=== PATIENT | female | born 1985 | race Caucasian/White ===

== ENCOUNTER 2022-06-23 13:30 | Inpatient (IN) | payer MEDICAID, OTHER, SELFPAY ==
--- NOTE | ~2022-06-23 | US_ITS ---
EXAMINATION: US ABDOMEN LIMITED CLINICAL INFORMATION: Right upper quadrant pain and tenderness. COMPARISON: Ultrasound abdomen 08/11/2015 TECHNIQUE: Real-time imaging of the right upper quadrant abdominal viscera. FINDINGS: PANCREAS: The pancreas appears unremarkable, without masses or ductal dilatation, with the exception of the tail which is obscured by bowel gas. LIVER: The liver is normal in size. The liver contour is normal. There is diffuse increased liver parenchymal echogenicity, consistent with hepatic steatosis. Multiple benign simple liver cysts are again seen the largest measuring 2.1 cm. No worrisome solid hepatic masses. There is no intrahepatic biliary duct dilatation seen. GALLBLADDER: The gallbladder is distended and appears thickened wall measuring 5 mm. 2 gallstones are seen near the neck of the gallbladder measuring about 1.3 cm. A 7 x 6 x 8 mm polyp is present, previously 3 mm. The wall thickening and stones are new when compared to the 2016 study. COMMON BILE DUCT: Normal in caliber measuring 0.7 cm in diameter. The CBD measured 3 mm in 2016 RIGHT KIDNEY: Normal. No hydronephrosis. No renal calculi or focal parenchymal lesions. The kidney measures 11.7 cm in maximum dimension. FREE FLUID: None. US/US abdomen limited IMPRESSION: 1. Cholelithiasis with thickened gallbladder wall and mild dilatation of CBD, new since 2016. Findings concerning for cholecystitis 2. Gallbladder polyp has increased in size from 3 to 8 mm 3. Hepatic steatosis. 4. Benign simple hepatic cysts need no further imaging or follow-up.
--- NOTE | 2022-06-23 13:43 | ED.ABDPAIN ---
HPI - Abdominal Pain General Chief Complaint: Abdominal Pain <Gabriela Neff CNP - Last Filed: 06/23/22 18:16> Stated Complaint: abd pain <Gabriela Neff CNP - Last Filed: 06/23/22 18:16> Time Seen by Provider: 06/23/22 19:33 <Gabriela Neff CNP - Last Filed: 06/23/22 18:16> Source: patient <Sandie Crooks MD - Last Filed: 06/23/22 21:15> Mode of arrival: ambulatory <Sandie Crooks MD - Last Filed: 06/23/22 21:15> History of Present Illness HPI narrative: 36-year-old female without significant past medical history presents with a 3-4 month course of having developed right upper quadrant/epigastric pain after fat containing meals and has progressively become more frequent with the last episode yesterday at approximately 22:00 after she had eaten a fatty meal. She reports subjective fevers overnight but denies any nausea, vomiting and otherwise denies any GI or symptoms other than described above. She presented to the emergency room because the pain was persistent and would not go away. <Sandie Crooks MD - Last Filed: 06/23/22 21:15> Related Data Allergies/Adverse Reactions: Allergies Allergy/AdvReac Type Severity Reaction Status Date / Time No Known Allergies Allergy Unverified 01/24/20 17:26 <Gabriela Neff CNP - Last Filed: 06/23/22 18:16> Review of Systems Review of Systems Pertinent positives and negatives as stated in HPI <Sandie Crooks MD - Last Filed: 06/23/22 21:15> PMFSH Past Medical History Source: nursing notes reviewed <Sandie Crooks MD - Last Filed: 06/23/22 21:15> Social History Social History: Social History Advance Directives: No Advance Directives Information Provided: No <Gabriela Neff CNP - Last Filed: 06/23/22 18:16> Physical Exam ED Vital Signs: Vital Signs - 24 hr 06/23/22 13:44 06/23/22 17:17 06/23/22 19:36 Temperature 98.1 F 98 F 98.2 F Pulse Rate 89 94 92 Respiratory Rate 18 18 16 Blood Pressure 150/86 H 143/93 H 158/67 H Pulse Oximetry 98 98 97 Oxygen Delivery Method Room Air Room Air Room Air 06/23/22 20:00 Temperature 98.1 F Pulse Rate 87 Respiratory Rate 16 Blood Pressure 131/65 Pulse Oximetry 98 Oxygen Delivery Method Room Air BMI result Body Mass Index 34.7 <Gabriela Neff CNP - Last Filed: 06/23/22 18:16> Vital Signs - 24 hr 06/23/22 13:44 06/23/22 17:17 06/23/22 19:36 Temperature 98.1 F 98 F 98.2 F Pulse Rate 89 94 92 Respiratory Rate 18 18 16 Blood Pressure 150/86 H 143/93 H 158/67 H Pulse Oximetry 98 98 97 Oxygen Delivery Method Room Air Room Air Room Air 06/23/22 20:00 Temperature 98.1 F Pulse Rate 87 Respiratory Rate 16 Blood Pressure 131/65 Pulse Oximetry 98 Oxygen Delivery Method Room Air BMI result Body Mass Index 34.7 VITAL SIGNS: Reviewed. GENERAL: Well developed, well nourished, in no acute distress. HEAD: Normocephalic/atraumatic EYES: PERRLA, EOMI LUNGS: Normal breath sounds. No adventitious sounds or accessory muscle use. SpO2<98> CARDIOVASCULAR: Regular rate and rhythm without noted murmurs ABDOMEN: Soft, Donald's positive, TTP RUQ, non-distended with bowel sounds. MUSCULOSKELETAL: No tenderness, deformities, or effusions noted on gross inspection. EXTREMITIES: No cyanosis, clubbing or edema. SKIN: Inspection of the skin reveals no rashes NEUROLOGIC: Alert and oriented x 4. Strength and sensation to light touch were grossly intact x 4. <Sandie Crooks MD - Last Filed: 06/23/22 21:15> Course Course Course Narrative: This is an RME: Additional HPI, ROS, PE not included below will be deferred to primary provider. Patient is a 36-year-old female who presents emergency department for evaluation of abdominal pain. She reports that she is having epigastric pain, burning, that has been intermittent in nature, and she reports a history of gastritis. Trialed simethicone and omeprazole without any improvement. Denies associated nausea/vomiting. Yesterday had tactile fever and diarrhea, denies today. Denies symptoms, denies . PE: RUQ/ epigastric tenderness upon palpation Plan: Labs, right upper quadrant ultrasound, GI cocktail, viral testing, urinalysis, hCG 17:30 - ultrasound findings concerning for acute cholecystitis with cholelithiasis, and CBD dilation. blood cultures, lactic acid, zosyn IV ordered, spoke with charge account identification clerk regarding patient pending bed availability, will be brought back to main ED once bed is available <Gabriela Neff CNP - Last Filed: 06/23/22 18:16> Medical Decision Making Medical Decision Making MDM Narrative: 36-year-old female with history and clinical presentation consistent with cholecystitis and on review of all investigations my interpretation is as patient has acute cholecystitis. <Sandie Crooks MD - Last Filed: 06/23/22 21:15> Differential Diagnosis Differential Diagnoses: The differential diagnosis associated with the presentation includes <Sandie Crooks MD - Last Filed: 06/23/22 21:15> Please see discussion above <Sandie Crooks MD - Last Filed: 06/23/22 21:15> Consult Healthcare Provider Management of the patient was discussed with: Slack Cooper <Sandie Crooks MD - Last Filed: 06/23/22 21:15> 2030: I consulted with General surgery, Dr. Galeano, who accepts admission. <Sandie Crooks MD - Last Filed: 06/23/22 21:15> Lab Data Please see the discussion above <Sandie Crooks MD - Last Filed: 06/23/22 21:15> Result Diagrams: 06/23/22 14:18 06/23/22 14:18 <Gabriela Neff CNP - Last Filed: 06/23/22 18:16> Labs: Lab Results 06/23/22 06/23/22 06/23/22 Range/Units 00:51 14:18 14:18 WBC 7.0 (4.8-10.8) X10*3/uL RBC 4.27 (4.20-5.50) X10*6/uL Hgb 12.8 (12.0-16.0) g/dl Hct 38.5 (37.0-47.0) % MCV 90.2 (80.0-98.0) fL MCH 30.0 (27.0-33.0) pg MCHC 33.2 (31.0-35.0) g/dl RDW 12.9 (11.0-16.0) % Plt Count 335 (160-400) X10*3/uL MPV 9.2 L (9.4-12.3) fL Immature Gran % (Auto) 0.3 (0.0-0.4) % Neut % (Auto) 72.0 (45-73) % Lymph % (Auto) 17.4 L (20-40) % Ashley % (Auto) 7.8 (2-11) % Eos % (Auto) 2.4 (0-4) % Baso % (Auto) 0.1 (0-2) % Lymph # (Auto) 1.2 (1.2-4.9) X10*3/uL Ashley # (Auto) 0.6 (0.1-1.2) X10*3/uL Eos # (Auto) 0.2 (0.0-0.4) X10*3/uL Baso # (Auto) 0.0 (0.0-0.2) X10*3/uL Abs Immat Gran (auto) 0.02 (0.00-0.03) X10*3/uL Absolute Neuts (auto) 5.0 (2.0-8.3) x10*3/uL Absolute Nucleated RBC 0.000 (0.0-0.012) X10*3/uL Nucleated RBC % (auto) 0.0 (0.0-0.2) /100WBC Sodium 141 (135-145) mmol/L Potassium 4.0 (3.3-5.1) mmol/L Chloride 109 H (96-108) mmol/L Carbon Dioxide 25 (22-29) mmol/L Anion Gap 11 L (12-20) BUN 6 L (9-16) mg/dL Creatinine 0.61 (0.5-1.4) mg/dL Estim Creat Clear Calc 123.6 Estimated GFR > 60 Random Glucose 107 (60-115) mg/dL Lactic Acid 0.7 (0.5-2.0) mmol/L Calcium 8.8 (8.4-10.2) mg/dL Total Bilirubin 0.9 (0.0-1.0) mg/dL AST 18 (5-31) U/L ALT 18 (0-31) U/L Alkaline Phosphatase 80 (39-117) U/L Total Protein 7.0 (6.5-8.0) g/dL Albumin 4.3 (3.5-5.0) g/dL Lipase 19 (8-78) U/L Urine Color Urine Appearance Urine pH (5.0-9.0) Ur Specific [place] (1.005-1.025) Urine Protein (Neg-Trace) mg/dL Urine Glucose (UA) (Negative) mg/dL Urine Ketones (Negative) mg/dL Urine Blood (Negative) Urine Nitrite (Negative) Ur Leukocyte Esterase (Negative) Urine Test (NEGATIVE) COVID-19 (JESSICA) (Negative) COVID-19 Clin Com Influenza Type A (FABIAN) (Negative) Influenza Type B (FABIAN) (Negative) Influenza A & B Note 06/23/22 06/23/22 06/23/22 Range/Units 14:18 14:18 18:05 WBC (4.8-10.8) X10*3/uL RBC (4.20-5.50) X10*6/uL Hgb (12.0-16.0) g/dl Hct (37.0-47.0) % MCV (80.0-98.0) fL MCH (27.0-33.0) pg MCHC (31.0-35.0) g/dl RDW (11.0-16.0) % Plt Count (160-400) X10*3/uL MPV (9.4-12.3) fL Immature Gran % (Auto) (0.0-0.4) % Neut % (Auto) (45-73) % Lymph % (Auto) (20-40) % Ashley % (Auto) (2-11) % Eos % (Auto) (0-4) % Baso % (Auto) (0-2) % Lymph # (Auto) (1.2-4.9) X10*3/uL Ashley # (Auto) (0.1-1.2) X10*3/uL Eos # (Auto) (0.0-0.4) X10*3/uL Baso # (Auto) (0.0-0.2) X10*3/uL Abs Immat Gran (auto) (0.00-0.03) X10*3/uL Absolute Neuts (auto) (2.0-8.3) x10*3/uL Absolute Nucleated RBC (0.0-0.012) X10*3/uL Nucleated RBC % (auto) (0.0-0.2) /100WBC Sodium (135-145) mmol/L Potassium (3.3-5.1) mmol/L Chloride (96-108) mmol/L Carbon Dioxide (22-29) mmol/L Anion Gap (12-20) BUN (9-16) mg/dL Creatinine (0.5-1.4) mg/dL Estim Creat Clear Calc Estimated GFR Random Glucose (60-115) mg/dL Lactic Acid (0.5-2.0) mmol/L Calcium (8.4-10.2) mg/dL Total Bilirubin (0.0-1.0) mg/dL AST (5-31) U/L ALT (0-31) U/L Alkaline Phosphatase (39-117) U/L Total Protein (6.5-8.0) g/dL Albumin (3.5-5.0) g/dL Lipase (8-78) U/L Urine Color Yellow Urine Appearance Clear Urine pH 6.5 (5.0-9.0) Ur Specific [place] 1.010 (1.005-1.025) Urine Protein Negative (Neg-Trace) mg/dL Urine Glucose (UA) Negative (Negative) mg/dL Urine Ketones 15 (Negative) mg/dL Urine Blood Negative (Negative) Urine Nitrite Negative (Negative) Ur Leukocyte Esterase Negative (Negative) Urine Test (NEGATIVE) COVID-19 (JESSICA) Negative (Negative) COVID-19 Clin Com See Note Influenza Type A (FABIAN) Negative (Negative) Influenza Type B (FABIAN) Negative (Negative) Influenza A & B Note See Note 06/23/22 Range/Units 18:05 WBC (4.8-10.8) X10*3/uL RBC (4.20-5.50) X10*6/uL Hgb (12.0-16.0) g/dl Hct (37.0-47.0) % MCV (80.0-98.0) fL MCH (27.0-33.0) pg MCHC (31.0-35.0) g/dl RDW (11.0-16.0) % Plt Count (160-400) X10*3/uL MPV (9.4-12.3) fL Immature Gran % (Auto) (0.0-0.4) % Neut % (Auto) (45-73) % Lymph % (Auto) (20-40) % Ashley % (Auto) (2-11) % Eos % (Auto) (0-4) % Baso % (Auto) (0-2) % Lymph # (Auto) (1.2-4.9) X10*3/uL Ashley # (Auto) (0.1-1.2) X10*3/uL Eos # (Auto) (0.0-0.4) X10*3/uL Baso # (Auto) (0.0-0.2) X10*3/uL Abs Immat Gran (auto) (0.00-0.03) X10*3/uL Absolute Neuts (auto) (2.0-8.3) x10*3/uL Absolute Nucleated RBC (0.0-0.012) X10*3/uL Nucleated RBC % (auto) (0.0-0.2) /100WBC Sodium (135-145) mmol/L Potassium (3.3-5.1) mmol/L Chloride (96-108) mmol/L Carbon Dioxide (22-29) mmol/L Anion Gap (12-20) BUN (9-16) mg/dL Creatinine (0.5-1.4) mg/dL Estim Creat Clear Calc Estimated GFR Random Glucose (60-115) mg/dL Lactic Acid (0.5-2.0) mmol/L Calcium (8.4-10.2) mg/dL Total Bilirubin (0.0-1.0) mg/dL AST (5-31) U/L ALT (0-31) U/L Alkaline Phosphatase (39-117) U/L Total Protein (6.5-8.0) g/dL Albumin (3.5-5.0) g/dL Lipase (8-78) U/L Urine Color Urine Appearance Urine pH (5.0-9.0) Ur Specific [place] (1.005-1.025) Urine Protein (Neg-Trace) mg/dL Urine Glucose (UA) (Negative) mg/dL Urine Ketones (Negative) mg/dL Urine Blood (Negative) Urine Nitrite (Negative) Ur Leukocyte Esterase (Negative) Urine Test NEGATIVE (NEGATIVE) COVID-19 (JESSICA) (Negative) COVID-19 Clin Com Influenza Type A (FABIAN) (Negative) Influenza Type B (FABIAN) (Negative) Influenza A & B Note <Gabriela Debbie Neff, PSYCHIATRY ADULT PHYSICIAN - Last Filed: 06/23/22 18:16> Lab Results 06/23/22 06/23/22 06/23/22 Range/Units 00:51 14:18 14:18 WBC 7.0 (4.8-10.8) X10*3/uL RBC 4.27 (4.20-5.50) X10*6/uL Hgb 12.8 (12.0-16.0) g/dl Hct 38.5 (37.0-47.0) % MCV 90.2 (80.0-98.0) fL MCH 30.0 (27.0-33.0) pg MCHC 33.2 (31.0-35.0) g/dl RDW 12.9 (11.0-16.0) % Plt Count 335 (160-400) X10*3/uL MPV 9.2 L (9.4-12.3) fL Immature Gran % (Auto) 0.3 (0.0-0.4) % Neut % (Auto) 72.0 (45-73) % Lymph % (Auto) 17.4 L (20-40) % Ashley % (Auto) 7.8 (2-11) % Eos % (Auto) 2.4 (0-4) % Baso % (Auto) 0.1 (0-2) % Lymph # (Auto) 1.2 (1.2-4.9) X10*3/uL Ashley # (Auto) 0.6 (0.1-1.2) X10*3/uL Eos # (Auto) 0.2 (0.0-0.4) X10*3/uL Baso # (Auto) 0.0 (0.0-0.2) X10*3/uL Abs Immat Gran (auto) 0.02 (0.00-0.03) X10*3/uL Absolute Neuts (auto) 5.0 (2.0-8.3) x10*3/uL Absolute Nucleated RBC 0.000 (0.0-0.012) X10*3/uL Nucleated RBC % (auto) 0.0 (0.0-0.2) /100WBC Sodium 141 (135-145) mmol/L Potassium 4.0 (3.3-5.1) mmol/L Chloride 109 H (96-108) mmol/L Carbon Dioxide 25 (22-29) mmol/L Anion Gap 11 L (12-20) BUN 6 L (9-16) mg/dL Creatinine 0.61 (0.5-1.4) mg/dL Estim Creat Clear Calc 123.6 Estimated GFR > 60 Random Glucose 107 (60-115) mg/dL Lactic Acid 0.7 (0.5-2.0) mmol/L Calcium 8.8 (8.4-10.2) mg/dL Total Bilirubin 0.9 (0.0-1.0) mg/dL AST 18 (5-31) U/L ALT 18 (0-31) U/L Alkaline Phosphatase 80 (39-117) U/L Total Protein 7.0 (6.5-8.0) g/dL Albumin 4.3 (3.5-5.0) g/dL Lipase 19 (8-78) U/L Urine Color Urine Appearance Urine pH (5.0-9.0) Ur Specific [place] (1.005-1.025) Urine Protein (Neg-Trace) mg/dL Urine Glucose (UA) (Negative) mg/dL Urine Ketones (Negative) mg/dL Urine Blood (Negative) Urine Nitrite (Negative) Ur Leukocyte Esterase (Negative) Urine Test (NEGATIVE) COVID-19 (JESSICA) (Negative) COVID-19 Clin Com Influenza Type A (FABIAN) (Negative) Influenza Type B (FABIAN) (Negative) Influenza A & B Note 06/23/22 06/23/22 06/23/22 Range/Units 14:18 14:18 18:05 WBC (4.8-10.8) X10*3/uL RBC (4.20-5.50) X10*6/uL Hgb (12.0-16.0) g/dl Hct (37.0-47.0) % MCV (80.0-98.0) fL MCH (27.0-33.0) pg MCHC (31.0-35.0) g/dl RDW (11.0-16.0) % Plt Count (160-400) X10*3/uL MPV (9.4-12.3) fL Immature Gran % (Auto) (0.0-0.4) % Neut % (Auto) (45-73) % Lymph % (Auto) (20-40) % Ashley % (Auto) (2-11) % Eos % (Auto) (0-4) % Baso % (Auto) (0-2) % Lymph # (Auto) (1.2-4.9) X10*3/uL Ashley # (Auto) (0.1-1.2) X10*3/uL Eos # (Auto) (0.0-0.4) X10*3/uL Baso # (Auto) (0.0-0.2) X10*3/uL Abs Immat Gran (auto) (0.00-0.03) X10*3/uL Absolute Neuts (auto) (2.0-8.3) x10*3/uL Absolute Nucleated RBC (0.0-0.012) X10*3/uL Nucleated RBC % (auto) (0.0-0.2) /100WBC Sodium (135-145) mmol/L Potassium (3.3-5.1) mmol/L Chloride (96-108) mmol/L Carbon Dioxide (22-29) mmol/L Anion Gap (12-20) BUN (9-16) mg/dL Creatinine (0.5-1.4) mg/dL Estim Creat Clear Calc Estimated GFR Random Glucose (60-115) mg/dL Lactic Acid (0.5-2.0) mmol/L Calcium (8.4-10.2) mg/dL Total Bilirubin (0.0-1.0) mg/dL AST (5-31) U/L ALT (0-31) U/L Alkaline Phosphatase (39-117) U/L Total Protein (6.5-8.0) g/dL Albumin (3.5-5.0) g/dL Lipase (8-78) U/L Urine Color Yellow Urine Appearance Clear Urine pH 6.5 (5.0-9.0) Ur Specific [place] 1.010 (1.005-1.025) Urine Protein Negative (Neg-Trace) mg/dL Urine Glucose (UA) Negative (Negative) mg/dL Urine Ketones 15 (Negative) mg/dL Urine Blood Negative (Negative) Urine Nitrite Negative (Negative) Ur Leukocyte Esterase Negative (Negative) Urine Test (NEGATIVE) COVID-19 (JESSICA) Negative (Negative) COVID-19 Clin Com See Note Influenza Type A (FABIAN) Negative (Negative) Influenza Type B (FABIAN) Negative (Negative) Influenza A & B Note See Note 06/23/22 Range/Units 18:05 WBC (4.8-10.8) X10*3/uL RBC (4.20-5.50) X10*6/uL Hgb (12.0-16.0) g/dl Hct (37.0-47.0) % MCV (80.0-98.0) fL MCH (27.0-33.0) pg MCHC (31.0-35.0) g/dl RDW (11.0-16.0) % Plt Count (160-400) X10*3/uL MPV (9.4-12.3) fL Immature Gran % (Auto) (0.0-0.4) % Neut % (Auto) (45-73) % Lymph % (Auto) (20-40) % Ashley % (Auto) (2-11) % Eos % (Auto) (0-4) % Baso % (Auto) (0-2) % Lymph # (Auto) (1.2-4.9) X10*3/uL Ashley # (Auto) (0.1-1.2) X10*3/uL Eos # (Auto) (0.0-0.4) X10*3/uL Baso # (Auto) (0.0-0.2) X10*3/uL Abs Immat Gran (auto) (0.00-0.03) X10*3/uL Absolute Neuts (auto) (2.0-8.3) x10*3/uL Absolute Nucleated RBC (0.0-0.012) X10*3/uL Nucleated RBC % (auto) (0.0-0.2) /100WBC Sodium (135-145) mmol/L Potassium (3.3-5.1) mmol/L Chloride (96-108) mmol/L Carbon Dioxide (22-29) mmol/L Anion Gap (12-20) BUN (9-16) mg/dL Creatinine (0.5-1.4) mg/dL Estim Creat Clear Calc Estimated GFR Random Glucose (60-115) mg/dL Lactic Acid (0.5-2.0) mmol/L Calcium (8.4-10.2) mg/dL Total Bilirubin (0.0-1.0) mg/dL AST (5-31) U/L ALT (0-31) U/L Alkaline Phosphatase (39-117) U/L Total Protein (6.5-8.0) g/dL Albumin (3.5-5.0) g/dL Lipase (8-78) U/L Urine Color Urine Appearance Urine pH (5.0-9.0) Ur Specific [place] (1.005-1.025) Urine Protein (Neg-Trace) mg/dL Urine Glucose (UA) (Negative) mg/dL Urine Ketones (Negative) mg/dL Urine Blood (Negative) Urine Nitrite (Negative) Ur Leukocyte Esterase (Negative) Urine Test NEGATIVE (NEGATIVE) COVID-19 (JESSICA) (Negative) COVID-19 Clin Com Influenza Type A (FABIAN) (Negative) Influenza Type B (FABIAN) (Negative) Influenza A & B Note <Sandie Crooks MD - Last Filed: 06/23/22 21:15> Radiology Impression Radiologist Impression: My interpretation is in agreement with radiology's impression of the imaging study. <Sandie Crooks MD - Last Filed: 06/23/22 21:15> Medications Administered Discontinued Medications Generic Name Dose Route Start Last Admin Trade Name Freq PRN Reason Stop Dose Admin Al Hydroxide/Mg Hydroxide 30 ml 06/23/22 13:46 06/23/22 13:52 Magnesium Hydrox/Alum Hydrox 30 Ml Oral.Susp PO 06/23/22 13:47 30 ml ONCE ONE Administration Famotidine 20 mg 06/23/22 13:46 06/23/22 13:52 Famotidine 20 Mg Tablet PO 06/23/22 13:47 20 mg ONCE ONE Administration Piperacillin Sod/Tazobactam 50 mls @ 100 mls/hr 06/23/22 17:22 06/23/22 20:40 Sod 3.375 gm/ Sodium Chloride IV 06/23/22 17:51 Infused ONCE ONE Infusion Lidocaine HCl 15 ml 06/23/22 13:46 06/23/22 13:52 Lidocaine Hcl Viscous 2 % 15 Ml Solution MUCOUS MEM 06/23/22 13:47 15 ml ONCE ONE Administration <Gabriela Neff CNP - Last Filed: 06/23/22 18:16> Medications Administered Discontinued Medications Generic Name Dose Route Start Last Admin Trade Name Francois PRN Reason Stop Dose Admin Al Hydroxide/Mg Hydroxide 30 ml 06/23/22 13:46 06/23/22 13:52 Magnesium Hydrox/Alum Hydrox 30 Ml Oral.Susp PO 06/23/22 13:47 30 ml ONCE ONE Administration Famotidine 20 mg 06/23/22 13:46 06/23/22 13:52 Famotidine 20 Mg Tablet PO 06/23/22 13:47 20 mg ONCE ONE Administration Piperacillin Sod/Tazobactam 50 mls @ 100 mls/hr 06/23/22 17:22 06/23/22 20:40 Sod 3.375 gm/ Sodium Chloride IV 06/23/22 17:51 Infused ONCE ONE Infusion Lidocaine HCl 15 ml 06/23/22 13:46 06/23/22 13:52 Lidocaine Hcl Viscous 2 % 15 Ml Solution MUCOUS MEM 06/23/22 13:47 15 ml ONCE ONE Administration <Sandie Crooks MD - Last Filed: 06/23/22 21:15> Critical Care Time Critical Care Time Critical Care Time: Yes <Sandie Crooks MD - Last Filed: 06/23/22 21:15> Total Critical Care Time: 30 <Sandie Crooks MD - Last Filed: 06/23/22 21:15> Attestation: I personally attest to this time spent taking care of the patient. <Sandie Crooks MD - Last Filed: 06/23/22 21:15> Discharge Plan Discharge Patient Disposition: Admitted As Inpatient <Gabriela Neff CNP - Last Filed: 06/23/22 18:16>
[2022-06-23 13:44] VITALS: BP 150/86; PULSE 89; RESP 18; TEMP 36.7; O2SAT 98; BMI 34.7
[2022-06-23] MEDS: Lidocaine HCl Viscous 2 % 15 ML SOLUTION MUCOUS MEM (13:52)
[2022-06-23] MEDS: Magnesium Hydrox/Alum Hydrox 30 ML ORAL.SUSP PO (13:52)
[2022-06-23] MEDS: Famotidine 20 MG TABLET PO (13:52)
--- NOTE | 2022-06-23 13:54 | PC.NURSE ---
pt medicated per provider order.
[2022-06-23 14:25] LABS: MANUAL DIFF FLAG NO
[2022-06-23 14:32] LABS: Basophils Percent Auto 0.1 % (0-2); Eosinophils Absolute Auto 0.2 X10*3/uL (0.0-0.4); Eosinophils Percent Auto 2.4 % (0-4); Hematocrit 38.5 % (37.0-47.0); Hemoglobin 12.8 g/dl (12.0-16.0); Imm Gran Abs Auto 0.02 X10*3/uL (0.00-0.03); Imm Gran Pct Auto 0.3 % (0.0-0.4); Lymphocytes Absolute Auto 1.2 X10*3/uL (1.2-4.9); Lymphocytes Percent Auto 17.4 % (20-40); Mean Corpuscular HGB Conc 33.2 g/dl (31.0-35.0); Mean Corpuscular Volume 90.2 fL (80.0-98.0); Mean Platelet Volume 9.2 fL (9.4-12.3); Monocytes Absolute Auto 0.6 X10*3/uL (0.1-1.2); Monocytes Percent Auto 7.8 % (2-11); Platelet Count 335 X10*3/uL (160-400); Red Blood Count 4.27 X10*6/uL (4.20-5.50); Red Cell Distribution Width 12.9 % (11.0-16.0)
[2022-06-23 14:42] LABS: Alanine Aminotransferase 18 U/L (0-31); Albumin Level 4.3 g/dL (3.5-5.0); Alkaline Phosphatase 80 U/L (39-117); Anion Gap 11 (12-20); Aspartate Amino Transferase 18 U/L (5-31); Bilirubin Total 0.9 mg/dL (0.0-1.0); Blood Urea Nitrogen 6 mg/dL (9-16); Calcium 8.8 mg/dL (8.4-10.2); Carbon Dioxide 25 mmol/L (22-29); Chloride 109 mmol/L (96-108); Creatinine Clr Calc Pharmacy 123.6; Estimated Glomerular Filt Rate > 60; Glucose Random 107 mg/dL (60-115); Lipase 19 U/L (8-78); Sodium 141 mmol/L (135-145)
[2022-06-23 14:48] LABS: COVID-19 Test Negative (Negative); IDNOW Serial# 16C4AD1C; IDNOW Serial# BCCEAD1C; Influenza A Negative (Negative); Influenza B2 Negative (Negative)
[2022-06-23 17:17] VITALS: BP 143/93; PULSE 94; RESP 18; TEMP 36.6; O2SAT 98
[2022-06-23 18:17] LABS: Appearance Urine Clear; Color Urine Yellow; Glucose Urine UA Negative (Negative); Leukocyte Esterase Urine Negative (Negative); Nitrite Urine Negative (Negative); PH 6.5 (5.0-9.0); Urine Blood Negative (Negative); Urine Ketones 15 mg/dL (Negative); Urine Protein Negative (Neg-Trace)
[2022-06-23 18:21] LABS: UPreg QC Valid YES; Urine Pregnancy NEGATIVE (NEGATIVE)
[2022-06-23 18:27] LABS: Lactic Acid 0.7 mmol/L (0.5-2.0)
[2022-06-23 19:36] VITALS: BP 158/67; PULSE 92; RESP 16; TEMP 36.8; O2SAT 97
[2022-06-23] MEDS: Piperacillin Sodium/Tazobactam 3.375 GM in 0.9 % Sodium Chloride 50 ML IV (19:51)
--- NOTE | 2022-06-23 19:53 | PC.NURSE ---
Addendum entered by Ronna Reilly 06/23/22 20:01: correction this rn assumed care of pt @ 1930 Original Note: this rn assumed care of pt @ 1717. iv line placed 20 L AC. flushed well. pt medicated according to jul. pt resting on stretcher [id number] into hospital gown at this time
[2022-06-23 20:00] VITALS: BP 131/65; PULSE 87; RESP 16; TEMP 36.7; O2SAT 98
--- NOTE | 2022-06-23 20:00 | MHC.EDTECH ---
2000 rounding and vitals sign taken ,pt resting in bed .
[2022-06-23 21:00] VITALS: BP 111/54; PULSE 85; RESP 16; TEMP 36.7; O2SAT 98
--- NOTE | 2022-06-23 21:31 | PHA.MEDREC ---
Pharmacy Consult ? Medication Reconciliation Pharmacy has completed the medication reconciliation.
[2022-06-23] MEDS: Sodium Chloride 0.45 % 1,000 ML 100 ML IVCONT (21:46)
--- NOTE | 2022-06-23 21:50 | PC.NURSE ---
pt medicated according to mar. pt's at bedside at this time. no new needs at this time
--- NOTE | 2022-06-23 22:57 | PM.HPGS ---
History of Present Illness History of Present Illness Date of Service: 06/23/22 Chief complaint: abd pain Narrative: Senthil Lanza is a 36 year old female who has been having right upper quarant pain which got worse and she came into the ER today. She says she has been having worsening symptoms over the last few months with nausea no fever. Her mother had GB issues and had it out. She denies any unusual diet, sick contacts. Review of Systems Review of Systems: Yes all other systems are reviewed and are negative Constitutional: Constitutional: Reports as per HPI, Denies body ache(s) and Denies chills Cardiovascular: Cardiovascular: Reports no additional cardiovascular complaints Respiratory: Respiratory: Reports no additional respiratory complaints Gastrointestinal: Gastrointestinal: Reports abdominal pain, Denies change in bowel habits, Denies constipation, Denies diarrhea, Reports vomiting and Denies hematemesis Genitourinary: Genitourinary: Reports no additional female genitourinary complaints Musculoskeletal: Musculoskeletal: Reports no additional musculoskeletal complaints PMFSH Social History Social History Smoked in Last 30 Days: No Use of substances other than those prescribed or required for medical reasons: No Advance Directives: No Advance Directives Information Provided: No Meds Allergies Allergy/AdvReac Type Severity Reaction Status Date / Time No Known Allergies Allergy Unverified 01/24/20 17:26 Active Medications: Current Medications Famotidine (Famotidine 20 Mg Tablet) 20 mg PO BID [facility] Sodium Chloride (Sodium Chloride 0.45 %) 1,000 mls @ 100 mls/hr IVCONT .Q10H [facility] Last Admin: 06/23/22 21:46 Dose: 100 mls/hr Ketorolac Tromethamine (Ketorolac Tromethamine 30 Mg/Ml Vial) 30 mg IVPUSH Q6H PRN PRN Reason: Pain, Mild (Pain Scale 1-3) Stop: 06/28/22 20:59 Ondansetron HCl (Ondansetron Hcl 4 Mg/2 Ml Vial) 4 mg IVPUSH Q8H PRN PRN Reason: Nausea and Vomiting Sodium Chloride (0.9 % Sodium Chloride Flush 3 Ml Syringe) 3 ml IVFLUSH QSHIFT [facility] Home Medications Medication Instructions Recorded Confirmed Last Taken Type omeprazole 20 mg capsule,delayed 20 mg PO DAILY 06/23/22 06/23/22 06/23/22 History release Physical Exam Vital Signs: Vital Signs: Last Vital Signs Temp 98.1 F 06/23/22 21:00 Pulse 85 06/23/22 21:00 Resp 16 06/23/22 21:00 BP 111/54 L 06/23/22 21:00 Pulse Ox 98 06/23/22 21:00 O2 Del Method 06/23/22 21:00 BMI result Body Mass Index 34.7 Const: General: cooperative, healthy appearing, comfortable and no acute distress Nutritional Appearance: overweight Orientation/consciousness: oriented to person, oriented to place and oriented to time HEENT: Head: Yes normal to inspection Resp: Effort & Inspection: normal respiratory effort Auscultation: clear to auscultation bilaterally Cardio: Rate: regular rate Rhythm: regular rhythm GI: Other: soft nondistended, diffusely mildly tender but worse in ruq with guarding. no peritoneal signs. : General: Yes no CVA tenderness Back/Spine/Pelvis: Back: no CVA tenderness Skin: Other: no jaundice Rashes: no rashes Neuro: General: oriented to person, oriented to place and oriented to time Extrem: General: Yes normal to inspection Psych: Appearance: grossly normal Mental Status: mental status grossly normal Results Results Labs: Short CBC 06/23/22 Range/Units 14:18 WBC 7.0 (4.8-10.8) X10*3/uL Hgb 12.8 (12.0-16.0) g/dl Hct 38.5 (37.0-47.0) % Plt Count 335 (160-400) X10*3/uL BMP 06/23/22 14:18 Sodium 141 Potassium 4.0 Chloride 109 H Carbon Dioxide 25 BUN 6 L Creatinine 0.61 Calcium 8.8 Liver Function 06/23/22 Range/Units 14:18 Total Bilirubin 0.9 (0.0-1.0) mg/dL AST 18 (5-31) U/L ALT 18 (0-31) U/L Alkaline Phosphatase 80 (39-117) U/L Albumin 4.3 (3.5-5.0) g/dL Urine 06/23/22 06/23/22 Range/Units 18:05 18:05 Urine Color Yellow Urine Appearance Clear Urine pH 6.5 (5.0-9.0) Ur Specific [place] 1.010 (1.005-1.025) Urine Protein Negative (Neg-Trace) mg/dL Urine Glucose (UA) Negative (Negative) mg/dL Urine Test NEGATIVE (NEGATIVE) Abdominal ultrasound report/results: report reviewed Additional studies: [address] [address] Ultrasound Report Signed Patient: Senthil Hyatt MR#: [id number] : 1985 Acct:[id number] Age/Sex: 36 / F ADM Date: 06/23/22 Loc: HO.ED Attending Dr: Ordering Physician: Gabriela Neff CNP Date of Service: 06/23/22 Procedure(s): US abdomen limited Accession Number(s): [id number] cc: Gabriela Neff CNP~ EXAMINATION: US ABDOMEN LIMITED CLINICAL INFORMATION: Right upper quadrant pain and tenderness. COMPARISON: Ultrasound abdomen 08/11/2015 TECHNIQUE: Real-time imaging of the right upper quadrant abdominal viscera. FINDINGS: PANCREAS: The pancreas appears unremarkable, without masses or ductal dilatation, with the exception of the tail which is obscured by bowel gas. LIVER: The liver is normal in size. The liver contour is normal. There is diffuse increased liver parenchymal echogenicity, consistent with hepatic steatosis.? Multiple benign simple liver cysts are again seen the largest measuring 2.1 cm. No worrisome solid hepatic masses. There is no intrahepatic biliary duct dilatation seen. GALLBLADDER: The gallbladder is distended and appears thickened wall measuring 5 mm. 2 gallstones are seen near the neck of the gallbladder measuring about 1.3 cm. A 7 x 6 x 8 mm polyp is present, previously 3 mm. The wall thickening and stones are new when compared to the 2016 study. COMMON BILE DUCT: Normal in caliber measuring 0.7 cm in diameter. The CBD measured 3 mm in 2016 RIGHT KIDNEY: Normal. No hydronephrosis. No renal calculi or focal parenchymal lesions. The kidney measures 11.7 cm in maximum dimension. FREE FLUID: None. US/US abdomen limited IMPRESSION: 1.? Cholelithiasis with thickened gallbladder wall and mild dilatation of CBD, new since 2016. Findings concerning for cholecystitis 2.? Gallbladder polyp has increased in size from 3 to 8 mm 3.? Hepatic steatosis. 4.? Benign simple hepatic cysts need no further imaging or follow-up. ? Dictated By: Kvng Sanchez MD Signed By: <Electronically signed by Kvng Sanchez MD in OV> 06/23/22 1522 DD/ 1348 TD/TT:? Drop Wire Builder: PRITI Assessment and Plan (1) Biliary colic: Status: Acute Plan 36 year old female with biliary colic maybe early cholecystitis vs chronic cholecytitis - she has been having worsening and more frequent right upper quadrant pain - gallstones present and thickening. lfts normal, tender in ruq. her cbd is .7 but was .3 few years ago. while normal this is a little large for 36 yo female. will admit, ivf, pain meds and check labs in am. npo after midnight, antibx if labs go up consider mrcp -? small CBD stone. pt will most likely need her gallbladder removed she understands and agree with the plan Time Spent With Patient Time: Total time managing care of this patient today ____ minutes. Quality Stroke Does the patient have a stroke diagnosis?: No VTE Prior VTE?: No VTE Risk Level:: Surgical - low VTE Device Contraindication: N/A - Device Ordered VTE Drug Contraindication: Treatment Not Indicated Procedures Date of Service Date of Service: 06/23/22
[2022-06-24] VITALS (19 sets, daily range): BP systolic 115–148; BP diastolic 49–79; PULSE 73–86; RESP 16–20; TEMP 36.3–37.3; O2SAT 96–100
[2022-06-24] MEDS: Piperacillin Sodium/Tazobactam 3.375 GM in 0.9 % Sodium Chloride 50 ML IV ×2 (02:33→09:50)
--- NOTE | 2022-06-24 02:42 | PC.NURSE ---
pt medicated according to mar. pt at bedside at this time
--- NOTE | 2022-06-24 06:59 | PC.NURSE ---
assumed care of patient, pt resting comfortably in bed, VSS, awaiting inpt bed
[2022-06-24] MEDS: Sodium Chloride 0.45 % 1,000 ML 100 ML IVCONT ×2 (07:21→16:55)
[2022-06-24 07:31] LABS: MANUAL DIFF FLAG NO
[2022-06-24 07:37] LABS: Basophils Percent Auto 0.4 % (0-2); Eosinophils Absolute Auto 0.2 X10*3/uL (0.0-0.4); Eosinophils Percent Auto 2.8 % (0-4); Hematocrit 33.9 % (37.0-47.0); Hemoglobin 11.6 g/dl (12.0-16.0); Imm Gran Abs Auto 0.02 X10*3/uL (0.00-0.03); Imm Gran Pct Auto 0.4 % (0.0-0.4); Lymphocytes Percent Auto 18.3 % (20-40); Mean Corpuscular HGB Conc 34.2 g/dl (31.0-35.0); Mean Corpuscular Volume 90.6 fL (80.0-98.0); Mean Platelet Volume 9.3 fL (9.4-12.3); Monocytes Absolute Auto 0.6 X10*3/uL (0.1-1.2); Neutrophils Absolute Auto 3.6 x10*3/uL (2.0-8.3); Neutrophils Percent Auto 67.1 % (45-73); Platelet Count 287 X10*3/uL (160-400); Red Blood Count 3.74 X10*6/uL (4.20-5.50); Red Cell Distribution Width 12.9 % (11.0-16.0); White Blood Count 5.4 X10*3/uL (4.8-10.8)
[2022-06-24 07:48] LABS: Alanine Aminotransferase 27 U/L (0-31); Albumin Level 3.8 g/dL (3.5-5.0); Alkaline Phosphatase 64 U/L (39-117); Anion Gap 13 (12-20); Aspartate Amino Transferase 26 U/L (5-31); Bilirubin Total 0.9 mg/dL (0.0-1.0); Blood Urea Nitrogen 5 mg/dL (9-16); Calcium 8.6 mg/dL (8.4-10.2); Carbon Dioxide 23 mmol/L (22-29); Chloride 109 mmol/L (96-108); Creatinine Clr Calc Pharmacy 142.2; Estimated Glomerular Filt Rate > 60; Glucose Random 95 mg/dL (60-115); Potassium 3.8 mmol/L (3.3-5.1); Sodium 141 mmol/L (135-145); Total Protein 6.2 g/dL (6.5-8.0)
--- NOTE | 2022-06-24 10:22 | PM.PNGS ---
Subjective Subjective Date of Service: 06/24/22 Interval history: Patient reports feeling improved this morning with less abdominal pain in the right upper quadrant. She denies any nausea or vomiting. She wishes to proceed with surgery. Physical Exam Vital Signs: Vital Signs: Last Vital Signs Temp 97.9 F 06/24/22 09:28 Pulse 77 06/24/22 09:28 Resp 16 06/24/22 09:28 BP 122/66 06/24/22 09:28 Pulse Ox 98 06/24/22 09:28 O2 Del Method 06/24/22 09:28 BMI result Body Mass Index 34.7 Const: General: comfortable and no acute distress Nutritional Appearance: well nourished Orientation/consciousness: patient oriented x3 Limitations: no limitations HEENT: Head: Yes normocephalic and Yes atraumatic Ears: hearing grossly normal bilaterally Eyes: Sclerae: sclerae normal Resp: Effort & Inspection: normal respiratory effort Auscultation: clear to auscultation bilaterally GI: Inspection: Yes normal to inspection Palpation (GI): Soft to palpation, Tenderness to palpation present (GI) in the RUQ and Donald's sign positive, no guarding and not rigid Skin: General skin exam: no rashes or lesions noted Neuro: General: patient oriented x3 Extrem: General: Yes normal to inspection and Yes no clubbing, cyanosis or edema Objective Data Active Medications Famotidine (Famotidine 20 Mg Tablet) 20 mg PO BID [facility] Last Admin: 06/24/22 07:22 Dose: Not Given Documented By: DARREL Non-Admin Reason: Patient Refused Sodium Chloride (Sodium Chloride 0.45 %) 1,000 mls @ 100 mls/hr IVCONT .Q10H [facility] Last Admin: 06/24/22 07:21 Dose: 100 mls/hr Documented By: DARREL Piperacillin Sod/Tazobactam (Sod 3.375 gm/ Sodium Chloride) 50 mls @ 100 mls/hr IV Q8H [facility] Last Admin: 06/24/22 09:50 Dose: 100 mls/hr Documented By: DARREL Ketorolac Tromethamine (Ketorolac Tromethamine 30 Mg/Ml Vial) 30 mg IVPUSH Q6H PRN PRN Reason: Pain, Mild (Pain Scale 1-3) Stop: 06/28/22 20:59 Ondansetron HCl (Ondansetron Hcl 4 Mg/2 Ml Vial) 4 mg IVPUSH Q8H PRN PRN Reason: Nausea and Vomiting Sodium Chloride (0.9 % Sodium Chloride Flush 3 Ml Syringe) 3 ml IVFLUSH QSHIFT [place] Last Admin: 06/24/22 07:22 Dose: Not Given Documented By: DARREL Non-Admin Reason: IV Running Labs 06/24/22 07:15 06/24/22 07:15 Labs: Laboratory Results - last 24 hr 06/23/22 06/23/22 06/23/22 00:51 14:18 14:18 MCV 90.2 MCH 30.0 MCHC 33.2 RDW 12.9 Plt Count 335 MPV 9.2 L Immature Gran % (Auto) 0.3 Neut % (Auto) 72.0 Lymph % (Auto) 17.4 L [place] % (Auto) 7.8 Eos % (Auto) 2.4 Baso % (Auto) 0.1 Lymph # (Auto) 1.2 [place] # (Auto) 0.6 Eos # (Auto) 0.2 Baso # (Auto) 0.0 Abs Immat Gran (auto) 0.02 Absolute Neuts (auto) 5.0 Absolute Nucleated RBC 0.000 Nucleated RBC % (auto) 0.0 Anion Gap 11 L Estim Creat Clear Calc 123.6 Estimated GFR > 60 Random Glucose 107 Lactic Acid 0.7 Calcium 8.8 Total Bilirubin 0.9 AST 18 ALT 18 Alkaline Phosphatase 80 Total Protein 7.0 Albumin 4.3 Lipase 19 Urine Color Urine Appearance Urine pH Ur Specific [place] Urine Protein Urine Glucose (UA) Urine Ketones Urine Blood Urine Nitrite Ur Leukocyte Esterase Urine Test COVID-19 (JESSICA) COVID-19 Clin Com Influenza Type A (FABIAN) Influenza Type B (FABIAN) Influenza A & B Note 06/23/22 06/23/22 06/23/22 14:18 14:18 18:05 MCV MCH MCHC RDW Plt Count MPV Immature Gran % (Auto) Neut % (Auto) Lymph % (Auto) [place] % (Auto) Eos % (Auto) Baso % (Auto) Lymph # (Auto) [place] # (Auto) Eos # (Auto) Baso # (Auto) Abs Immat Gran (auto) Absolute Neuts (auto) Absolute Nucleated RBC Nucleated RBC % (auto) Anion Gap Estim Creat Clear Calc Estimated GFR Random Glucose Lactic Acid Calcium Total Bilirubin AST ALT Alkaline Phosphatase Total Protein Albumin Lipase Urine Color Yellow Urine Appearance Clear Urine pH 6.5 Ur Specific [place] 1.010 Urine Protein Negative Urine Glucose (UA) Negative Urine Ketones 15 Urine Blood Negative Urine Nitrite Negative Ur Leukocyte Esterase Negative Urine Test COVID-19 (JESSICA) Negative COVID-19 Clin Com See Note Influenza Type A (FABIAN) Negative Influenza Type B (FABIAN) Negative Influenza A & B Note See Note 06/23/22 06/24/22 06/24/22 18:05 07:15 07:15 MCV 90.6 MCH 31.0 MCHC 34.2 RDW 12.9 Plt Count 287 MPV 9.3 L Immature Gran % (Auto) 0.4 Neut % (Auto) 67.1 Lymph % (Auto) 18.3 L [place] % (Auto) 11.0 Eos % (Auto) 2.8 Baso % (Auto) 0.4 Lymph # (Auto) 1.0 L [place] # (Auto) 0.6 Eos # (Auto) 0.2 Baso # (Auto) 0.0 Abs Immat Gran (auto) 0.02 Absolute Neuts (auto) 3.6 Absolute Nucleated RBC 0.000 Nucleated RBC % (auto) 0.0 Anion Gap 13 Estim Creat Clear Calc 142.2 Estimated GFR > 60 Random Glucose 95 Lactic Acid Calcium 8.6 Total Bilirubin 0.9 AST 26 ALT 27 Alkaline Phosphatase 64 Total Protein 6.2 L Albumin 3.8 Lipase Urine Color Urine Appearance Urine pH Ur Specific [place] Urine Protein Urine Glucose (UA) Urine Ketones Urine Blood Urine Nitrite Ur Leukocyte Esterase Urine Test NEGATIVE COVID-19 (JESSICA) COVID-19 Clin Com Influenza Type A (FABIAN) Influenza Type B (FABIAN) Influenza A & B Note Procedures Date of Service Date of Service: 06/24/22 Progress Note: A&P Assessment and plan (1) Acute cholecystitis due to biliary calculus: Status: Acute Assessment and Plan: 36-year-old female patient presenting with acute onset of right upper quadrant abdominal pain associated with nausea by admitting. Patient was a term to have acute cholecystitis by CT and examination. This morning she feels improved with decreased abdominal pain but is braiding machine tender on examination. We discussed non operative management verses laparoscopic cholecystectomy. She understands that with non operative management the symptoms could return. She wishes to proceed with surgery. After discussion of the procedure, risks, and alternatives, she consents to a laparoscopic or possible open cholecystectomy. She has been added onto the operative schedule for today. Time Spent With Patient Time: Total time managing care of this patient today ____ minutes. No Severe Sepsis: No Severe Sepsis Quality Stroke Does the patient have a stroke diagnosis?: No VTE Prior VTE?: No VTE Risk Level:: Surgical - low VTE Device Contraindication: N/A - Device Ordered VTE Drug Contraindication: Treatment Not Indicated
--- NOTE | 2022-06-24 13:33 | HO.ANESPROP2 ---
HPI - Anesthesia Eval Consult details Narrative: 36 F for Laparoscopic cholecystectomy PMFSH Active Problems Active Problems: All Active Problems (Updated 06/24/22 @ 10:24 by Nickolas Adams MD) Acute cholecystitis due to biliary calculus (Acute) Biliary colic (Acute) Past Medical History Functional capacity: independent ambulation Family History Family history of problems with anesthesia: No Surgical History History of Problems with Anesthesia: No Social History Social History Household Members: Spouse Housing: Apartment Do you presently have visiting nurse or other home services: No Patient Tobacco Use Status: Never used Tobacco Second Hand Smoke Exposure: No Meds Allergies Allergy/AdvReac Type Severity Reaction Status Date / Time No Known Allergies Allergy Unverified 01/24/20 17:26 Active Medications: Current Medications Famotidine (Famotidine 20 Mg Tablet) 20 mg PO BID [facility] Last Admin: 06/24/22 07:22 Dose: Not Given Sodium Chloride (Sodium Chloride 0.45 %) 1,000 mls @ 100 mls/hr IVCONT .Q10H [facility] Last Admin: 06/24/22 07:21 Dose: 100 mls/hr Piperacillin Sod/Tazobactam (Sod 3.375 gm/ Sodium Chloride) 50 mls @ 100 mls/hr IV Q8H [facility] Last Infusion: 06/24/22 11:19 Dose: Infused Ketorolac Tromethamine (Ketorolac Tromethamine 30 Mg/Ml Vial) 30 mg IVPUSH Q6H PRN PRN Reason: Pain, Mild (Pain Scale 1-3) Stop: 06/28/22 20:59 Ondansetron HCl (Ondansetron Hcl 4 Mg/2 Ml Vial) 4 mg IVPUSH Q8H PRN PRN Reason: Nausea and Vomiting Sodium Chloride (0.9 % Sodium Chloride Flush 3 Ml Syringe) 3 ml IVFLUSH QSHIFT [facility] Last Admin: 06/24/22 07:22 Dose: Not Given Home Medications Medication Instructions Recorded Confirmed Last Taken Type omeprazole 20 mg capsule,delayed 20 mg PO DAILY 06/23/22 06/23/22 06/23/22 History release Exam Exam Date and Time: June 24, 2022 1333 Height,Weight and Vital Signs: Height 5 ft 1 in Weight 83.3 kg Last Vital Signs Temp 97.4 F 06/24/22 12:02 Pulse 83 06/24/22 12:02 Resp 16 06/24/22 12:02 BP 148/79 H 06/24/22 12:02 Pulse Ox 98 06/24/22 12:02 O2 Del Method 06/24/22 12:02 Pertinent Lab Results Pertinent Lab Results: Laboratory Tests 06/23/22 06/23/22 06/23/22 00:51 14:18 14:18 WBC 7.0 RBC 4.27 Hgb 12.8 Hct 38.5 MCV 90.2 MCH 30.0 MCHC 33.2 RDW 12.9 Plt Count 335 MPV 9.2 L Immature Gran % (Auto) 0.3 Neut % (Auto) 72.0 Lymph % (Auto) 17.4 L [place] % (Auto) 7.8 Eos % (Auto) 2.4 Baso % (Auto) 0.1 Lymph # (Auto) 1.2 [place] # (Auto) 0.6 Eos # (Auto) 0.2 Baso # (Auto) 0.0 Abs Immat Gran (auto) 0.02 Absolute Neuts (auto) 5.0 Absolute Nucleated RBC 0.000 Nucleated RBC % (auto) 0.0 Sodium 141 Potassium 4.0 Chloride 109 H Carbon Dioxide 25 Anion Gap 11 L BUN 6 L Creatinine 0.61 Estim Creat Clear Calc 123.6 Estimated GFR > 60 Random Glucose 107 Lactic Acid 0.7 Calcium 8.8 Total Bilirubin 0.9 AST 18 ALT 18 Alkaline Phosphatase 80 Total Protein 7.0 Albumin 4.3 Lipase 19 Urine Color Urine Appearance Urine pH Ur Specific [place] Urine Protein Urine Glucose (UA) Urine Ketones Urine Blood Urine Nitrite Ur Leukocyte Esterase Urine Test COVID-19 (JESSICA) COVID-19 Clin Com Influenza Type A (FABIAN) Influenza Type B (FABIAN) Influenza A & B Note 06/23/22 06/23/22 06/23/22 14:18 14:18 18:05 WBC RBC Hgb Hct MCV MCH MCHC RDW Plt Count MPV Immature Gran % (Auto) Neut % (Auto) Lymph % (Auto) [place] % (Auto) Eos % (Auto) Baso % (Auto) Lymph # (Auto) [place] # (Auto) Eos # (Auto) Baso # (Auto) Abs Immat Gran (auto) Absolute Neuts (auto) Absolute Nucleated RBC Nucleated RBC % (auto) Sodium Potassium Chloride Carbon Dioxide Anion Gap BUN Creatinine Estim Creat Clear Calc Estimated GFR Random Glucose Lactic Acid Calcium Total Bilirubin AST ALT Alkaline Phosphatase Total Protein Albumin Lipase Urine Color Yellow Urine Appearance Clear Urine pH 6.5 Ur Specific [place] 1.010 Urine Protein Negative Urine Glucose (UA) Negative Urine Ketones 15 Urine Blood Negative Urine Nitrite Negative Ur Leukocyte Esterase Negative Urine Test COVID-19 (JESSICA) Negative COVID-19 Clin Com See Note Influenza Type A (FABIAN) Negative Influenza Type B (FABIAN) Negative Influenza A & B Note See Note 06/23/22 06/24/22 06/24/22 18:05 07:15 07:15 WBC 5.4 RBC 3.74 L Hgb 11.6 L Hct 33.9 L MCV 90.6 MCH 31.0 MCHC 34.2 RDW 12.9 Plt Count 287 MPV 9.3 L Immature Gran % (Auto) 0.4 Neut % (Auto) 67.1 Lymph % (Auto) 18.3 L [place] % (Auto) 11.0 Eos % (Auto) 2.8 Baso % (Auto) 0.4 Lymph # (Auto) 1.0 L [place] # (Auto) 0.6 Eos # (Auto) 0.2 Baso # (Auto) 0.0 Abs Immat Gran (auto) 0.02 Absolute Neuts (auto) 3.6 Absolute Nucleated RBC 0.000 Nucleated RBC % (auto) 0.0 Sodium 141 Potassium 3.8 Chloride 109 H Carbon Dioxide 23 Anion Gap 13 BUN 5 L Creatinine 0.53 Estim Creat Clear Calc 142.2 Estimated GFR > 60 Random Glucose 95 Lactic Acid Calcium 8.6 Total Bilirubin 0.9 AST 26 ALT 27 Alkaline Phosphatase 64 Total Protein 6.2 L Albumin 3.8 Lipase Urine Color Urine Appearance Urine pH Ur Specific [place] Urine Protein Urine Glucose (UA) Urine Ketones Urine Blood Urine Nitrite Ur Leukocyte Esterase Urine Test NEGATIVE COVID-19 (JESSICA) COVID-19 Clin Com Influenza Type A (FABIAN) Influenza Type B (FABIAN) Influenza A & B Note Airway Mallampati Class: IV TM Dist: <=3cm Neck ROM: Full Loose/Missing/Broken Teeth: Yes Heart: S1,S2 Lungs: b/l breath sounds Assessment and Plan Assessment Anesthesia Assessment: Anesthesia Plan Discussed and Chart Reviewed Final Anesthetic Review Family History of Problems with Anesthesia: No History of Problems with Anesthesia: No NPO: Yes ASA Class: II Final Preanesthetic Review: Meds/Allgs Chart Reviewed, Consent Obtained/Reviewed and Anes Risks/Benef Reviewed Patient Risk: Intermediate Procedure Risk: Intermediate Anesthetic Plan Anesthetic Plan: GA Disposition: Standard PACU and Inp. Admit - Standard Bed
--- NOTE | 2022-06-24 15:27 | W.PM.OPN ---
Operative Note Operative Note Date of Service: 06/24/22 Narrative: Preoperative diagnosis: Acute cholecystitis, cholelithiasis Postoperative diagnosis: Same Procedure: Laparoscopic cholecystectomy Surgeon: Nickolas Adams MD Station Manager: SHANAE Sanchez Anesthesia: General endotracheal Indications for procedure: 36-year-old female patient presenting with acute onset of right upper quadrant abdominal pain found to have gallstones within the gallbladder at the neck of the gallbladder with wall thickening suggestive of acute cholecystitis. Operative findings: Normal appearing gallbladder with 2 large gallstones at the neck of the gallbladder. Specimen: gallbladder Estimated blood loss: Less than 1 mL Complications: None Procedure details: Patient was brought to the OR and placed in a supine position. After administering general anesthesia the patient's abdomen was prepped with ChloraPrep and draped in a sterile fashion. Local anesthesia consisting of 0.5% Sensorcaine without epinephrine was infiltrated in a periumbilical region. A 5 mm incision was made above the umbilicus in a transverse fashion. The Veress needle was then inserted while elevating abdominal cavity with towel clips. After positive drop test the abdomen was insufflated to a pressure of 15 mm of mercury. The Veress needle was then removed and a 5 mm trocar inserted. The camera was inserted in the abdomen explored. A 12 mm trocar was then placed in the epigastrium. Two 5 mm trocars placed in the right upper quadrant by the information services assistant. The patient was placed in reverse Trendelenburg positioning and rotated to the left. The gallbladder was grasped with the fundus and retracted cephalad by the information services assistant. The infundibulum was then grasped and retracted away from the liver bed, also by the information services assistant. The Dolphin dissected was then used by the surgeon to dissect the peritoneum off the infundibulum to reveal the junction with the cystic duct. Cystic artery was noted slightly medial and posterior to the cystic duct. After obtaining a critical view the cystic duct was doubly clipped and divided. The cystic artery was then doubly clipped and divided. The gallbladder was then dissected off the liver bed using electrocautery with an L hook. Hemostasis was assured all times using the electrocautery. When the gallbladder is completely dissected off the liver bed was placed in an Endo-Catch bag and brought out through the epigastric incision. The gallbladder was sent to pathology for further examination. The abdomen was then re-examined. The liver bed was irrigated and suctioned dry. No bleeding or bile leak could be identified. CO2 was then evacuated and all trocars removed. Fascia was closed at the epigastric incision using a [id number] 0 Polysorb suture. Skin was closed in all incisions using a subcuticular 4 0 Polysorb suture by both the surgeon and information services assistant. Sterile dressings consisting of Steri-Strips, 2 x 2 gauze, and Tegaderm were then applied. The patient tolerated the procedure well. Sponge instrument and needle counts reported as correct. The patient was transferred to PACU in stable condition.
[2022-06-24] MEDS: fentaNYL citrate/PF 100 MCG/2 ML VIAL 25 MCG IVPUSH ×4 (16:00→16:15)
[2022-06-24] MEDS: HYDROmorphone HCl 0.5 MG/0.5 ML SYRINGE 0.25 MG IVPUSH ×2 (16:25→16:39)
[2022-06-24] MEDS: Acetaminophen 1,000 MG/100 ML PIGGYBACK 400 MG IV (17:45)
[2022-06-24] MEDS: 0.9 % Sodium Chloride Flush 3 ML SYRINGE IVFLUSH ×2 (17:45→20:21)
[2022-06-25] MEDS: Acetaminophen 1,000 MG/100 ML PIGGYBACK 400 MG IV ×2 (00:40→05:31)
[2022-06-25] MEDS: Sodium Chloride 0.45 % 1,000 ML 100 ML IVCONT (03:37)
[2022-06-25 03:53] VITALS: BP 118/56; PULSE 67; RESP 16; TEMP 36.4; O2SAT 97
[2022-06-25] MEDS: Omeprazole 20 MG CAPSULE.DR PO (05:31)
[2022-06-25 05:42] VITALS: BMI 35.0
[2022-06-25 07:16] VITALS: BP 137/63; PULSE 73; RESP 17; TEMP 36.4; O2SAT 97
--- NOTE | 2022-06-25 08:31 | P.PNGS_ITS ---
Subjective Subjective Date of Service: 06/25/22 Interval history: Feels well this morning. C/o mild incisional pain but comfortable. Tolerating solid diet. OOB and ambulating to bathroom without difficulty. Wants to go home. Physical Exam Vital Signs: Vital Signs: Last Vital Signs Temp 97.6 F 06/25/22 07:16 Pulse 73 06/25/22 07:16 Resp 17 06/25/22 07:16 BP 137/63 06/25/22 07:16 Pulse Ox 97 06/25/22 07:16 O2 Del Method 06/25/22 07:16 O2 Flow Rate 2 06/25/22 07:16 BMI result Body Mass Index 35.0 Const: General: comfortable, no acute distress and alert Orientation/co nsciousness: patient oriented x3 Resp: Effort & Inspection: normal respiratory effort GI: Inspection: No distended and Yes incision (dressings c/d/i) Palpation (GI): Soft to palpation, Tenderness to palpation present (GI) (mild incisional tenderness), no guarding and not rigid Percussion: Yes normal to percussion Skin: General skin exam: no rashes or lesions noted Neuro: General: patient oriented x3 Objective Data Active Medications Hydromorphone HCl (Hydromorphone Hcl 0.5 Mg/0.5 Ml Syringe) 0.25 mg IVPUSH Q5M PRN; Protocol PRN Reason: Pain, Severe (Pain Scale 7-10) Last Admin: 06/24/22 16:39 Dose: 0.25 mg Documented By: JAZMINE Hydromorphone HCl (Hydromorphone Hcl 0.5 Mg/0.5 Ml Syringe) 0.5 mg IVPUSH Q3H PRN; Protocol PRN Reason: Pain, Severe (Pain Scale 7-10) Sodium Chloride (Sodium Chloride 0.45 %) 1,000 mls @ 100 mls/hr IVCONT .Q10H [facility] Last Admin: 06/25/22 03:37 Dose: 100 mls/hr Documented By: KEL Promethazine HCl 6.25 mg/ (Sodium Chloride) 50.25 mls @ 201 mls/hr IV ONCE PRN PRN Reason: Nausea and Vomiting Acetaminophen (Ofirmev) 1,000 mg in 100 mls @ 400 mls/hr IV Q6H [facility] Stop: 06/25/22 11:32 Last Infusion: 06/25/22 05:54 Dose: 0 mls/hr Documented By: KEL Omeprazole (Omeprazole 20 Mg Capsule.) 20 mg PO DAILY@0630 [facility] Last Admin: 06/25/22 05:31 Dose: 20 mg Documented By: KEL Ondansetron HCl (Ondansetron Hcl 4 Mg/2 Ml Vial) 4 mg IVPUSH Q8H PRN PRN Reason: Nausea and Vomiting Sodium Chloride (0.9 % Sodium Chloride Flush 3 Ml Syringe) 3 ml IVFLUSH [facility] Last Admin: 06/24/22 20:21 Dose: 3 ml Documented By: KEL Sodium Chloride (0.9 % Sodium Chloride Flush 3 Ml Syringe) 3 ml IVFLUSH [facility] Last Admin: 06/25/22 01:13 Dose: Not Given Documented By: KEL Non-Admin Reason: IV Running Zolpidem Tartrate (Zolpidem Tartrate 5 Mg Tablet) 5 mg PO BEDTIME PRN PRN Reason: Insomnia Labs 06/24/22 07:15 06/24/22 07:15 Microbiology Microbiology Results: Microbiology 06/23/22 17:59 Blood Culture - Preliminary Blood - Venous No growth after 24 hours. 06/23/22 18:00 Blood Culture - Preliminary Blood - Venous No growth after 24 hours. Procedures Date of Service Date of Service: 06/25/22 Progress Note: A&P Assessment and plan (1) Acute cholecystitis due to biliary calculus: Status: Acute (2) S/P laparoscopic cholecystectomy: Status: Acute Plan 36 year old female admitted with biliary colic, early acute cholecystitis now POD #1 s/p lap CCY. Doing well post op. Comfortable and tolerating solid diet. VSS. Abd exam benign with appropriate post op tenderness, dressings intact. Stable to for dc to home. F/u in office in 1 week. Patient comfortable with plan. Time Spent With Patient Time: Total time managing care of this patient today ____ minutes. Quality Stroke Does the patient have a stroke diagnosis?: No VTE Prior VTE?: No VTE Risk Level:: Surgical - low VTE Device Contraindication: N/A - Device Ordered VTE Drug Contraindication: Treatment Not Indicated
--- NOTE | 2022-06-26 16:34 | HO.POSTANES ---
Post Anesthesia Evaluation Post Anesthesia Evaluation Anesthesia: General Endotracheal-GETA Mental Status: Awake Pain Control: Satisfactory Nausea/Vomiting: None Hydration: Adequate Anesthesia-Related Issues: No Anes. Related Issues
--- NOTE | 2022-06-29 10:56 | PM.DS ---
DS: Providers Provider Date of Service: 06/25/22 Date of admission: 06/23/22 21:01 Date of discharge: 06/25/22 Primary care physician: Arnold Roberts MD Attending physician on admission: Christina Galeano Attending physician on discharge: Nickolas Adams DS: Diagnosis Discharge Diagnosis (1) Acute cholecystitis due to biliary calculus: Status: Acute (2) S/P laparoscopic cholecystectomy: Status: Acute DS: Summary Hospital Course Hospital Course: HPI AT ADMISSION: Senthil Lanza is a 36 year old female who has been having right upper quarant pain which got worse and she came into the ER today. She says she has been having worsening symptoms over the last few months with nausea no fever. Her mother had GB issues and had it out. She denies any unusual diet, sick contacts. Imaging demonstrated gallstones within the gallbladder at the neck of the gallbladder with wall thickening suggestive of acute cholecystitis. HOSPITAL COURE: She was admitted to the surgical service for further management. 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 She elected to proceed with cholecystectomy. She has been added onto the operative schedule for today. On 06/24/22, a laparoscopic cholecystectomy was performed by Dr. Adams without complication. The patient tolerated the procedure well. She had an uncomplicated recovery course. On POD #1, she felt improved with only mild incisional abdominal pain. She was tolerating a solid diet without nausea or vomiting. She was ambulating. Her abdomen was benign with clean and intact dressings and vitals were stable. She was discharged to home on 06/25/22 in stable condition. She is to follow up in the office in 1 week for a wound check. Status at Discharge Functional status at discharge: independent ambulation Overall status at discharge: patient is progressing back to baseline Time Spent with Patient Time attestation: Total time managing care of this patient today ____ minutes. Discharge coordination time: Less than 30 minutes Quality: Safe Use of Opioids Does Pt have an Active Cancer Diagnosis on the Problem List?: No Quality: Stroke Does the patient have a stroke diagnosis?: No Physical Exam Vital Signs: Vital Signs: Last Vital Signs Temp 97.6 F 06/25/22 07:16 Pulse 73 06/25/22 07:16 Resp 17 06/25/22 07:16 BP 137/63 02/17/23 07:16 Pulse Ox 97 06/25/22 07:16 O2 Del Method 06/25/22 07:16 O2 Flow Rate 2 06/25/22 07:16 BMI result Body Mass Index 35.0 Const: Orientation/consciousness: patient oriented x3 Resp: Effort & Inspection: normal respiratory effort GI: Inspection: No distended and Yes incision (dressings intact) Palpation (GI): Soft to palpation, Tenderness to palpation present (GI) (mild incisional), no guarding and not rigid Skin: General skin exam: no rashes or lesions noted Neuro: General: patient oriented x3 DS: Data Data Completed and Pending Completed studies during hospitalization [Text1]: Procedures Resection of Gallbladder, Percutaneous Endoscopic Approach (06/23/22) Pending studies at discharge: Pending at discharge 06/24/22 15:17 Surgical [PTH] Routine Discharge Plan Discharge Anticipated Discharge Date/Time: 06/25/22 08:34 Patient Disposition: Home, Self-Care Discharge Diagnosis: acute cholecystitis, s/p lap silvana Referrals: Nickolas Adams MD [Physician] - 1 Week Physician,Preston Matias [Physician] - 1 Week Discharge Medications: New oxycodone 5 mg tablet 5 mg PO Q4H PRN (Reason: pain (scale score 7-10)) Qty: 20 0RF Rx Instructions: Partial Fill upon patient request. Continued omeprazole 20 mg capsule,delayed release(DR/EC) 20 mg PO DAILY No Action docusate sodium [Colace] 100 mg capsule 100 mg PO BID Qty: 30 0RF Discharge Orders: Discharge Order (Routine); Ordered 06/25/22 Ordered By: Sarah Whelan Diet: Low fat, low cholesterol Activity on Discharge: No heavy lifting Stand Alone Forms: Patient Portal Discharge page Activity Restrictions/Additional Instructions: If the incision area is tender, you may apply an ice pack for short intervals (No more than 20 minutes on, followed by at least 20 minutes off). Do not apply heat. Do not use creams, lotions, or topical antibiotics unless instructed to do so by your surgeon. These can cause infection or allergic reaction. Ok to shower. Remove clear dressings 3 days following your procedure. You have steri strips (small white cloth strips) covering your incision- these will fall off ~1 week. No heavy lifting (>10lbs) or strenuous activity! Follow up in office with Dr. Adams in 1 week. ([phone]) Call Your Doctor If: -Your temperature exceeds 101.5? F -You experience excessive pain or swelling -You have an unexpected reaction to medication -You have excessive bleeding -You experience continued vomiting/nausea -Your incision begins to separate -Your incision shows signs of infection such as increased redness, swelling, excessive pain, drainage (light blood or clear fluid is normal) or heat Care Plan Goals: Return to baseline health and gradual return to activity following recovery period. Health Concerns: acute cholecystitis Plan of Treatment: s/p lap cholecystectomy Pain control F/u in office Assessment: Doing well post op Discharge Date/Time: 06/25/22 11:30
== END 2022-06-25 11:30 | disposition home or self-care (01) | DRG 263 ==
LOC: HO.ED 19:33 → HO.EDOVER 21:10 → HO.S3 06-24 15:17
PROVIDERS: Nurse Practitioner Family; Surgery; Admitting Provider Surgery; Emergency Provider Student in an Organized Health Care Education/Training Program; PCP Internal Medicine; Visit Provider Surgery
PROC: 0FT44ZZ Resection of Gallbladder, Percutaneous Endoscopic Approach (ICD-10-PCS; CPT 47562; principal; 2022-06-24 12:30)
DX: K80.00 Calculus of gallbladder with acute cholecystitis without obstruction (principal); Z20.822 Contact with and (suspected) exposure to COVID-19; Z79.899 Other long term (current) drug therapy
CPT/HCPCS: 47562; 36415; 76705; 80053; 81003; 81025; 83605; 83690; 85025; 87040; 87502; 87635; 88304; 99221; 99284; J0131; J1170; J2250; J2405; J2543; J2795; J3010

== ENCOUNTER → 2022-07-01 09:16 | Outpatient (BNVA) | payer MEDICAID, OTHER, SELFPAY | PROVIDERS: PCP Family Medicine; Referring Provider Family Medicine; Visit Provider Physician Assistant Surgical | DX: Z09 Encounter for follow-up examination after completed treatment for conditions other than malignant neoplasm (principal); Z90.49 Acquired absence of other specified parts of digestive tract | CPT/HCPCS: 99212 ==

== ENCOUNTER 2022-12-20 11:42 | Outpatient (REF) | payer MEDICAID, OTHER, SELFPAY ==
[2022-12-20 13:57] LABS: Estimated Average Glucose 91 mg/dL; Hemoglobin A1c % 4.8 %
[2022-12-20 14:32] LABS: Cholesterol 184 mg/dL; HDL Cholesterol 59 mg/dL; LDL Cholesterol Calculated 80 mg/dl; Triglycerides 226 mg/dL
[2022-12-20 14:39] LABS: Alanine Aminotransferase 29 U/L (0-31); Albumin Level 4.5 g/dL (3.5-5.0); Alkaline Phosphatase 72 U/L (39-117); Anion Gap 12 (12-20); Aspartate Amino Transferase 57 U/L (5-31); Bilirubin Total 0.3 mg/dL (0.0-1.0); Blood Urea Nitrogen 11 mg/dL (9-16); Calcium 9.2 mg/dL (8.4-10.2); Carbon Dioxide 26 mmol/L (22-29); Chloride 107 mmol/L (96-108); Estimated Glomerular Filt Rate > 60; Glucose Random 91 mg/dL (60-115); Potassium 3.6 mmol/L (3.3-5.1); Sodium 141 mmol/L (135-145); Total Protein 7.7 g/dL (6.5-8.0)
[2022-12-20 18:14] LABS: Reflex LDLD? No
== END 2022-12-20 11:43 | disposition home or self-care (01) ==
LOC: HO.HHCL 11:42
PROVIDERS: Visit Provider Family Medicine
DX: R03.0 Elevated blood-pressure reading, without diagnosis of hypertension (principal); E66.3 Overweight
CPT/HCPCS: 36415; 80053; 80061; 83036

== ENCOUNTER 2022-12-22 08:55 | Outpatient (REF) | payer MEDICAID, OTHER, SELFPAY ==
[2022-12-22 12:00] LABS: Alanine Aminotransferase 27 U/L (0-31); Albumin Level 4.6 g/dL (3.5-5.0); Alkaline Phosphatase 73 U/L (39-117); Aspartate Amino Transferase 38 U/L (5-31); Bilirubin Direct 0.2 mg/dL (0.0-0.5); Bilirubin Total 0.5 mg/dL (0.0-1.0); Gamma Glutamyl Transpeptidase 23 U/L (7-33); Total Protein 7.9 g/dL (6.5-8.0)
[2022-12-22 12:08] LABS: HBS Num1 18.68 mIU/mL (0-7.99); HBc Num1 0.06 S/CO (0.00-0.79); HBsAGNum1 0.34 S/CO (0.00-0.99); HIV AB/AG Nonreactive (Nonreactive); HIV Num 1 0.07 S/CO (0.00-0.99); Hepatitis A Antibody IgG REACTIVE (Nonreactive); Hepatitis B Core Antibody Nonreactive (Nonreactive); Hepatitis B Surface Antigen Negative (Negative); ~Hepatitis A Antibody IgG 10.47 S/CO (0.00-0.99); ~Hepatitis B Surface Antibody REACTIVE (Nonreactive)
[2022-12-22 12:17] LABS: ~HepC Num1 0.31 S/CO (0.00-0.79); ~Hepatitis C Antibody Nonreactive (Nonreactive)
== END 2022-12-22 08:56 | disposition home or self-care (01) ==
LOC: HO.HHCL 08:55
PROVIDERS: Visit Provider Family Medicine
DX: R74.01 Elevation of levels of liver transaminase levels (principal)
CPT/HCPCS: 36415; 80076; 82977; 84443; 86704; 86706; 86708; 86803; 87340; 87389

== ENCOUNTER 2023-04-13 08:33 | Outpatient (REF) | payer SELFPAY ==
[2023-04-13 11:51] LABS: Cholesterol 217 mg/dL (<200); HDL Cholesterol 67 mg/dL (>40); LDL Cholesterol Calculated 128 mg/dL (<100); Triglycerides 112 mg/dL (<150)
[2023-04-13 12:07] LABS: Alanine Aminotransferase 20 U/L (0-31); Albumin Level 4.5 g/dL (3.5-5.0); Alkaline Phosphatase 83 U/L (39-117); Aspartate Amino Transferase 21 U/L (5-31); Bilirubin Direct 0.3 mg/dL (0.0-0.5); Bilirubin Total 0.7 mg/dL (0.0-1.0)
[2023-04-13 12:30] LABS: Reflex LDLD? No
== END 2023-04-13 08:34 | disposition home or self-care (01) ==
LOC: HO.HHCL 08:33
PROVIDERS: Visit Provider Family Medicine
DX: R74.01 Elevation of levels of liver transaminase levels (principal); E78.1 Pure hyperglyceridemia
CPT/HCPCS: 36415; 80061; 80076

== ENCOUNTER 2023-08-24 09:19 | Outpatient (REF) | payer MEDICAID, OTHER, SELFPAY ==
[2023-08-24 11:25] LABS: MANUAL DIFF FLAG NO
[2023-08-24 11:45] LABS: Basophils Percent Auto 0.4 % (0-2); Eosinophils Absolute Auto 0.5 X10*3/uL (0.0-0.4); Eosinophils Percent Auto 4.8 % (0-4); Hematocrit 40.2 % (37.0-47.0); Hemoglobin 13.3 g/dl (12.0-16.0); Imm Gran Abs Auto 0.02 X10*3/uL (0.00-0.03); Imm Gran Pct Auto 0.2 % (0.0-0.4); Lymphocytes Absolute Auto 1.6 X10*3/uL (1.2-4.9); Lymphocytes Percent Auto 15.1 % (20-40); Mean Corpuscular HGB Conc 33.1 g/dl (31.0-35.0); Mean Corpuscular Hemoglobin 30.3 pg (27.0-33.0); Mean Corpuscular Volume 91.6 fL (80.0-98.0); Monocytes Percent Auto 9.4 % (2-11); Neutrophils Absolute Auto 7.3 x10*3/uL (2.0-8.3); Neutrophils Percent Auto 70.1 % (45-73); Platelet Count 368 X10*3/uL (160-400); Red Blood Count 4.39 X10*6/uL (4.20-5.50); Red Cell Distribution Width 12.8 % (11.0-16.0); White Blood Count 10.4 X10*3/uL (4.8-10.8)
[2023-08-24 12:00] LABS: Alanine Aminotransferase 19 U/L (0-31); Albumin Level 4.6 g/dL (3.5-5.0); Alkaline Phosphatase 80 U/L (39-117); Aspartate Amino Transferase 20 U/L (5-31); Bilirubin Direct 0.2 mg/dL (0.0-0.5); Bilirubin Total 0.7 mg/dL (0.0-1.0); Total Protein 8.1 g/dL (6.5-8.0)
== END 2023-08-24 09:20 | disposition home or self-care (01) ==
LOC: HO.HHCL 09:19
PROVIDERS: Visit Provider Family Medicine
DX: K76.0 Fatty (change of) liver, not elsewhere classified (principal)
CPT/HCPCS: 36415; 80076; 85025

== ENCOUNTER 2023-09-16 08:25 | Outpatient (REF) | payer MEDICAID, OTHER, SELFPAY ==
--- NOTE | ~2023-09-16 | US_ITS ---
EXAMINATION: US COMPLETE ABDOMEN WITH LIVER ELASTOGRAPHY CLINICAL INFORMATION: MASLD. COMPARISON: Right upper quadrant ultrasound 06/23/2022. TECHNIQUE: Real-time imaging of the abdominal viscera. Noninvasive ultrasound liver fibrosis assessment is performed using Lyndon ElastPQ point quantification shear wave elastography (2D-SWE) with a C5-2 MHz transducer. Multiple elastography samples are obtained. FINDINGS: PANCREAS: The visualized pancreatic head and body are normal in appearance. The remainder of the pancreas is obscured from visualization by the overlying bowel gas. ABDOMINAL AORTA: The proximal, middle, and distal aortic segments are normal in caliber. INFERIOR VENA CAVA: Visualized portions are normal. LIVER: The liver is enlarged with increased echogenicity suggesting hepatic steatosis. No focal lesion or intrahepatic biliary duct dilatation. Cysts are noted in each lobe of the liver with the largest measuring 1.9 cm on the left and 2.2 cm on the right. The right lobe measures 17.3 cm in length. The left lobe measures 10.2 cm in length. Portal flow is towards the liver (hepatopetal). Shear wave liver elastography median stiffness is 1.4 m/s (reference: normal median stiffness is 1.3 m/s or less). IQR/median stiffness to assess sampling precision is 0.06 (reference: good quality data set is IQR/median stiffness of 0.15 or less). GALLBLADDER: Normal. The gallbladder is physiologically distended without evidence of stones, sludge, polyps, wall thickening or pericholecystic fluid. COMMON BILE DUCT: Normal in caliber measuring 0.2 cm in diameter. RIGHT KIDNEY: No hydronephrosis. In the upper pole, there is a 5 mm calcification seen consistent with a nonobstructing calculus. No other renal calculi or focal parenchymal lesions. The kidney measures 11.0 cm in maximum dimension. LEFT KIDNEY: . No hydronephrosis. No renal calculi or focal parenchymal lesions. The kidney measures 11.7 cm in maximum dimension. SPLEEN: Normal. The spleen measures 7.4 cm in maximum dimension. FREE FLUID: None. US/US abdomen comp w elastography IMPRESSION: 1. Enlarged echogenic liver. 2. Incidentally noted nonobstructing left renal calculus. 2. Liver elastography: In the absence of other known clinical signs, measurements rule out compensated advanced chronic liver disease. If there are known clinical signs, further testing may be needed for confirmation. REFERENCE: Society of Radiologists in Ultrasound Liver Stiffness Thresholds (2020): LIVER STIFFNESS THRESHOLDS: *Liver Stiffness equal or less than 1.3 m/s: High probability of being normal. *Liver Stiffness less than 1.7 m/s: In the absence of other known clinical signs, rules out compensated advanced chronic liver disease. *Liver Stiffness 1.7-2.1 m/s: Suggestive of compensated advanced chronic liver disease but need further test for confirmation. *Liver Stiffness over 2.1 m/s: Rules in compensated advanced chronic liver disease. *Liver Stiffness over 2.4 m/s: Suggestive of clinically significant portal hypertension. QUALITY OF DATA SET: *IQR/Median value equal or less than 0.15 implies a quality data set. *IQR/Median value over 0.15 implies a poor quality data set. SIGNIFICANT CHANGE FROM PRIOR EXAM: Significant change if liver stiffness measurement is 10% or greater from prior exam. OTHER CONSIDERATIONS: The stage of liver fibrosis may be overestimated in the setting of acute hepatitis, liver inflammation, elevated liver function tests, hepatic vascular congestion, obstructive cholestasis, non-fasting state, and infiltrative diseases such as amyloidosis and lymphoma. In some patients with NAFLD, the liver stiffness thresholds for compensated advanced chronic liver disease may be lower. In causes other than viral hepatitis and NAFLD, liver stiffness thresholds are not well established.
== END 2023-09-16 08:26 | disposition home or self-care (01) ==
LOC: HO.US 08:25
PROVIDERS: PCP Family Medicine; Visit Provider Family Medicine
DX: K82.4 Cholesterolosis of gallbladder (principal); R76.0 Raised antibody titer
CPT/HCPCS: 76700; 76981

== ENCOUNTER 2023-12-30 08:04 | Outpatient (REF) | payer MEDICAID, OTHER, SELFPAY ==
[2023-12-30 11:14] LABS: MANUAL DIFF FLAG NO
[2023-12-30 11:18] LABS: Basophils Percent Auto 0.5 % (0-2); Eosinophils Absolute Auto 0.2 X10*3/uL (0.0-0.4); Eosinophils Percent Auto 2.1 % (0-4); Hematocrit 37.6 % (37.0-47.0); Hemoglobin 12.7 g/dl (12.0-16.0); Imm Gran Abs Auto 0.01 X10*3/uL (0.00-0.03); Imm Gran Pct Auto 0.1 % (0.0-0.4); Lymphocytes Absolute Auto 1.7 X10*3/uL (1.2-4.9); Lymphocytes Percent Auto 22.3 % (20-40); Mean Corpuscular HGB Conc 33.8 g/dl (31.0-35.0); Mean Corpuscular Hemoglobin 30.8 pg (27.0-33.0); Mean Corpuscular Volume 91.3 fL (80.0-98.0); Mean Platelet Volume 9.7 fL (9.4-12.3); Monocytes Absolute Auto 0.7 X10*3/uL (0.1-1.2); Monocytes Percent Auto 8.6 % (2-11); Neutrophils Absolute Auto 5.2 x10*3/uL (2.0-8.3); Neutrophils Percent Auto 66.4 % (45-73); Platelet Count 346 X10*3/uL (160-400); Red Blood Count 4.12 X10*6/uL (4.20-5.50); Red Cell Distribution Width 12.8 % (11.0-16.0); White Blood Count 7.8 X10*3/uL (4.8-10.8)
[2023-12-30 11:30] LABS: Alanine Aminotransferase 17 U/L (0-31); Albumin Level 4.3 g/dL (3.5-5.0); Alkaline Phosphatase 73 U/L (39-117); Anion Gap 12 (12-20); Aspartate Amino Transferase 21 U/L (5-31); Bilirubin Total 0.6 mg/dL (0.0-1.0); Blood Urea Nitrogen 10 mg/dL (9-16); Calcium 8.9 mg/dL (8.4-10.2); Carbon Dioxide 22 mmol/L (22-29); Chloride 108 mmol/L (96-108); Estimated Glomerular Filt Rate > 60; Glucose Random 92 mg/dL (60-115); Potassium 4.1 mmol/L (3.3-5.1); Sodium 138 mmol/L (135-145); Total Protein 7.4 g/dL (6.5-8.0)
== END 2023-12-30 08:05 | disposition home or self-care (01) ==
LOC: HO.HHCL 08:04
PROVIDERS: Visit Provider Family Medicine
DX: R53.83 Other fatigue (principal)
CPT/HCPCS: 36415; 80053; 85025

== ENCOUNTER 2024-01-02 08:15 | Outpatient (REF) | payer MEDICAID, OTHER, SELFPAY ==
[2024-01-02 11:59] LABS: Appearance Urine Cloudy; Color Urine Yellow; Glucose Urine UA Negative (Negative); Leukocyte Esterase Urine Moderate (2+) (Negative); Nitrite Urine Negative (Negative); PH 6.5 (5.0-9.0); Specific Gravity - Urine 1.025 (1.005-1.025); UMIC TRIGGER UA YES; Urine Blood Negative (Negative); Urine Ketones Negative (Negative); Urine Protein 30 (1+) mg/dL (Neg-Trace)
[2024-01-02 12:05] LABS: Bacteria Urine 4+ (None Seen); RBC Urine 0-2 /HPF (0-2); Squamous Epithelial Cell Urine >20 /HPF (0-2); WBC Urine >50 /HPF (0-5)
== END 2024-01-02 08:16 | disposition home or self-care (01) ==
LOC: HO.HHCL 08:15
PROVIDERS: Visit Provider Family Medicine
DX: R30.0 Dysuria (principal); M54.9 Dorsalgia, unspecified
CPT/HCPCS: 81001; 87086; 87088; 87186

== ENCOUNTER 2024-01-26 07:51 | Outpatient (REF) | payer MEDICAID, OTHER, SELFPAY ==
--- NOTE | ~2024-01-26 | US_ITS ---
EXAMINATION: US RETROPERITONEAL LIMITED (RENAL ONLY) CLINICAL INFORMATION: UTI, proteus mirabilis. Nonobstructive kidney stone seen in last ultrasound. COMPARISON: Ultrasound abdomen 09/16/2023 and 06/23/2022. TECHNIQUE: Real-time imaging of the kidneys. FINDINGS: RIGHT KIDNEY: 11.0 x 5.4 x 5.8 cm (SAG x AP x TRV). The kidney is normal in size, contour, and echogenicity. Renal cortical thickness is normal. No renal calculi or hydronephrosis. A benign upper pole 1.2 cm Bosniak class I renal cyst is noted which requires no additional imaging or follow up. No solid renal masses are seen. LEFT KIDNEY: 12.0 x 5.8 x 5.2 cm (SAG x AP x TRV). The kidney is normal in size, contour, and echogenicity. Renal cortical thickness is normal. No focal parenchymal lesions. There is a 3 mm upper pole and 3 mm lower pole echogenic foci seen consistent with nonobstructing stones. There is mild left-sided pelvocaliectasis, new compared to prior. US/US renal BI IMPRESSION: 1. Nonobstructing left-sided renal calculi. 2. Mild left-sided pelvocaliectasis. Electronically signed by: Kvng Sanchez MD 02/01/2024 12:45 AM EDT
== END 2024-01-26 07:52 | disposition home or self-care (01) ==
LOC: HO.US 07:51
PROVIDERS: PCP Family Medicine; Visit Provider Family Medicine
DX: N30.00 Acute cystitis without hematuria (principal); Z87.442 Personal history of urinary calculi
CPT/HCPCS: 76775

== ENCOUNTER 2024-02-17 13:19 | Outpatient (REF) | payer MEDICAID, OTHER, SELFPAY ==
[2024-02-17 16:28] LABS: Appearance Urine Clear; Color Urine Yellow; Glucose Urine UA Negative (Negative); Leukocyte Esterase Urine Negative (Negative); Nitrite Urine Negative (Negative); PH 6.5 (5.0-9.0); Specific Gravity - Urine <= 1.005 (1.005-1.025); Urine Blood Negative (Negative); Urine Ketones Negative (Negative); Urine Protein Negative (Neg-Trace)
[2024-02-17 16:36] LABS: Bacteria Urine None Seen (None Seen); Hyaline Casts Urine 0-2 /LPF (0-2); RBC Urine 0-2 /HPF (0-2); WBC Urine 0-5 /HPF (0-5)
== END 2024-02-17 13:20 | disposition home or self-care (01) ==
LOC: HO.HHCL 13:19
PROVIDERS: Visit Provider Family Medicine
DX: N20.0 Calculus of kidney (principal); N39.0 Urinary tract infection, site not specified
CPT/HCPCS: 81001; 87086

== ENCOUNTER 2024-07-05 08:23 | Outpatient (REF) | payer MEDICAID, OTHER, SELFPAY ==
--- OUTSIDE RECORDS SUMMARY | 2024-07-05 08:47 | XMS_ITS | Encounter Summary ---
Author Organization [employer] Address [address] [place] [address] [address] [place] [address] Care Team Providers Care Medicaid Billing Specialist Name Role Phone María Elena Zazueta MD Primary Care Provider [phone] Reason for Visit * Reason Comments physical Encounter Details Date Type Department Care Team ([facility] st Contact Info) Description 07/05/2024 9:00 AM EST Office Visit [facility] MED[facility]INE [address] [place], [place] [id number] María Elena Zazueta MD [address] [place], [place] [phone] Routine general medical examination at a health care facility (Primary Dx); Hypertension, unspecified type; Metabolic dysfunction-associate d steatotic liver disease (MASLD); Gastroesophageal reflux disease, unspecified whether esophagitis present; Kidney stone; Vitamin D deficiency; Obesity, Class II, BMI 35-39.9; Status post laparoscopic cholecystectomy; Dyslipidemia; Seasonal allergic rhinitis due to pollen; Alcohol consumption binge drinking Social History Tobacco Use Types Packs/Day Years Used Date Smoking Tobacco: Never Passive Smoke Exposure: Never Smokeless Tobacco: Never Alcohol Use Standard Drinks/Week Comments Yes 12 (1 standard drink = 0.6 oz pu re alcohol) Alcohol Answer Date Recorded Q1: How often do you have a drink containing alc ohol? 3 06/05/2023 Q2: How many drinks containi ng alcohol do you have on a typical day when you are drinking? 3 06/05/2023 Q3: How often do you have six or more drinks on one occasion? 4 06/05/2023 Depression Answer Date Recorded Patient Health Questionnaire-9 Score 0 08/24/2023 Patient Health Questionnaire-9 Score 0 08/24/2023 Last PHQ-9: Questionnaire Data Not on file 0 08/24/2023 Housing Stability Answer Date Recorded What is your housing situation today? I have hugh nguyen 02/25/[address] you li ve. Do you have problems with any of the following? None of the above 02/25/2023 Food Insecurity Answer Date Recorded Within the past 12 months, y ou worried that your food would run out before you got money to buy more: Never True 05/25/2024 Within the past 12 months,th e food you bought just didn't last and you didn't have enough money to get more: Never True Transportation Answer Date Recorded In the past 12 months, has l ack of transportation kept you from medical appts, meetings, work or from getting things needed for daily living? No 02/25/2023 Utilities Answer Date Recorded In the past 12 months, has t he electric, gas, oil or water company threatened to shut off services in your home? No 02/25/2023 Depression Answer Date Recorded Patient Health Questionnaire-2 Score 0 03/01/2024 Internet Access Answer Date Recorded Internet Access Q1 Yes 05/25/2024 Internet Access Q2 Not on file 05/25/2024 Comments Unknown Sex and Gender Information Value Date Recorded Sex Assigned at Female 03/08/2022 10:19 AM EDT Legal Sex Female 10:19 AM EDT Gender Identity Female 03/08/2022 10:19 AM EDT Sexual Orientation Straight 03/08/2022 10 :19 AM EDT documented as of this encounter Last Filed Vital Signs Vital Sign Reading Time Taken Comments Blood Pressure 150/88 07/05/2024 8:38 AM EST Pulse 73 07/05/2024 8:38 AM EST Temperature 36.4 ??C (97.6 ??F) 07/05/2024 8:38 AM ES T Respiratory Rate 20 07/05/2024 8:38 AM EST Oxygen Saturation 99% 07/05/2024 8:38 AM EST Inhaled Oxygen Concentration - - Weight 84.3 kg (185 lb 12.8 oz) 07/05/2024 8:38 AM EST Height - - Body Mass Index 36.29 03/01/2024 9:12 AM EDT documented in this encounter Plan of Treatment Not on file documented as of this encounter Visit Diagnoses Diagnosis Routine general medical examination at a health care facility- Primary Hypertension, unspecified type Metabolic dysfunction-associated steatotic liver disease (MASLD) Gastroesophageal reflux disease, unspecified whether esophagitis present Kidney stone Calculus of kidney Vitamin D deficiency Obesity, Class II, BMI 35-39.9 Status post laparoscopic cholecystectomy Other postprocedural status Dyslipidemia Other and unspecified hyperlipidemia Seasonal allergic rhinitis due to pollen Alcohol consumption binge drinking documented in this encounter Additional Health Concerns Assessment Noted Time PHQ-9 Depression Total Score: 0 08/24/19 24 9:00 AM EDT documented as of this encounter Care Teams Medicaid Billing Specialist Relationship Specialty Start Date End Date María Elena Zazueta MD [address] [place] [address] PCP - General Family Medicine 11/07/19 documented as of this encounter
--- OUTSIDE RECORDS SUMMARY | 2024-07-05 08:47 | XMS_ITS | Encounter Summary ---
Author Organization [employer] Address [address] [place] [address] Care Team Providers Care System Manager Name Role Phone María Elena Zazueta MD Primary Care Provider [phone] Encounter Details Date Type Department Care Team (Latest Contact Info) Description 07/05/2024 Travel Social History Tobacco Use Types Packs/Day Years [...] AM EDT documented as of this encounter Plan of Treatment Upcoming Encounters Date Type Department Care Team (Late st Contact Info) Description 07/05/2024 9:00 AM EST Office Visit [facility] MEDICINE [address] [place] [phone] María Elena Zazueta MD [address] [place] [phone] Routine general medical examination at a health care facility (Primary Dx); Hypertension, unspecified type; Metabolic dysfunction-associate d steatotic liver disease (MASLD); Gastroesophageal reflux disease, unspecified whether esophagitis present; Kidney stone; Vitamin D deficiency; Obesity, Class II, BMI 35-39.9; Status post laparoscopic cholecystectomy; Dyslipidemia; Seasonal allergic rhinitis due to pollen; Alcohol consumption binge drinking documented as of this encounter Visit Diagnoses Not on filedocumented in this encounter Additional Health Concerns Assessment Noted Time PHQ-9 Depression Total Score: 0 08/24/19 24 9:00 AM EDT documented as of this encounter Care Teams System Manager Relationship Specialty Start Date End Date María Elena Zazueta MD [address] [place] [phone] PCP - General Family Medicine 11/07/19 documented as of this encounter
--- OUTSIDE RECORDS SUMMARY | 2024-07-05 08:48 | XMS_ITS | Encounter Summary ---
Author Organization [employer] Address 75 [facility] 7t [place] [address] Care Team Providers Care Marketing Graphics Specialist Name Role Phone María Elena Zazueta MD Primary Care Provider [phone] Reason for Visit * Reason Comments Pre-visit Planning SDOH was completed o n 05/25/2024 Encounter Details Date Type Department Care Team ([facility] st Contact Info) Description 06/27/2024 Patient Outreach [facility] [address] [place], [place] [phone] María Elena Zazueta MD [address] [place] [address] Pre-visit Planning (SDOH was completed on 05/25/2024) Social History Tobacco Use Types Packs/Day Years [...] AM EDT documented as of this encounter Progress Notes * Rosario Nascimento - 06/27/2024 1:27 PM EST LEANA Conde placed successful outbound call to patient for pre-visit planning. Patient name and confirmed. Patient confirms appt date and time, and has transportation arrangements. Biggest concern for appointment at this time is no concerns. Appropriate screenings completed in anticipation ofappointment. documented in this encounter Plan of Treatment Upcoming Encounters Date Type Department Care Team (Late st Contact Info) Description 07/05/2024 9:00 AM EST Office Visit [facility] [address] [place], [place] [phone] María Elena Zazueta MD [address] [place] [address] Routine general medical examination at a health [...] documented as of this encounter Care Teams Marketing Graphics Specialist Relationship Specialty Start Date End Date María Elena Zazueta MD [address] [place] [address] PCP - General Family Medicine 11/07/19 documented as of this encounter
--- OUTSIDE RECORDS SUMMARY | 2024-07-05 08:48 | XMS_ITS | Encounter Summary ---
Author Organization [employer] Address 75 [facility] 7t [place] [address] Care Team Providers Care Reporting Specialist Name Role Phone María Elena Zazueta MD Primary Care Provider [phone] Encounter Details Date Type Department Care Team ([facility] st Contact Info) Description 09/15/2023 Orders Only [facility] [address] [place], [place] [phone] María Elena Zazueta MD [address] [place], [place] [phone] Social History Tobacco Use Types Packs/Day Years [...] before you got money to buy more: Sometimes True 2023 Within the past 12 months,th e food you bought just didn't last and you didn't have enough money to get more: Sometimes True 05/19/2023 Transportation Answer Date Recorded In the past [...] Date Recorded Patient Health Questionnaire-2 Score 0 08/24/2023 Comments Unknown Sex and Gender Information Value [...] 07/05/2024 9:00 AM EST Office Visit [facility] [address] [place] [phone] María Elena Zazueta MD [address] [place] [phone] Routine general medical examination at a health [...] documented as of this encounter Care Teams Reporting Specialist Relationship Specialty Start Date End Date María Elena Zazueta MD [address] [place] [phone] PCP - General Family Medicine 11/07/19 documented as of this encounter
--- OUTSIDE RECORDS SUMMARY | 2024-07-05 08:48 | XMS_ITS | Encounter Summary ---
Author Organization [employer] Address 75 [facility] 7t [place] [address] Care Team Providers Care Extraction Supervisor Name Role Phone María Elena Zazueta MD Primary Care Provider [phone] Encounter Details Date Type Department Care Team (Late st Contact Info) Description 06/06/2024 Orders Only [facility] [address] [place], [place] [phone] María Elena Zazueta MD [address] [place], [place] [phone] Hypertension, unspecified type (Primary Dx); Dyslipidemia; Kidney stone; Vitamin D deficiency Social History Tobacco Use Types Packs/Day Years [...] the past 12 months, has t he [employer], gas, oil or water [employer] threatened to shut off services in your [...] Description 07/05/2024 9:00 AM EST Office Visit [facility]INE [address] [place], [place] [phone] María Elena Zazueta MD [address] [place] [address] Routine general medical examination at a health care facility (Primary Dx); Hypertension, unspecified type; Metabolic dysfunction-associate d steatotic liver disease (MASLD); Gastroesophageal reflux disease, unspecified whether esophagitis present; Kidney stone; Vitamin D deficiency; Obesity, Class II, BMI 35-39.9; Status post laparoscopic cholecystectomy; Dyslipidemia; Seasonal allergic rhinitis due to pollen; Alcohol consumption binge drinking Scheduled Orders Name Type Priority Associated Diagnoses Orde r Schedule Vitamin D, 25-Hydroxy, Total, Immunoassay Lab Routine Vitamin D deficiency Expected: 06/06/2024 (Approximate), Expires: 06/06/2025 documented as of this encounter Visit Diagnoses Diagnosis Hypertension, unspecified type- Primary Dyslipidemia Other and unspecified hyperlipidemia Kidney stone Calculus of kidney Vitamin D deficiency Routine general medical examination at a health [...] documented as of this encounter Care Teams Extraction Supervisor Relationship Specialty Start Date End Date María Elean Zazueta MD [address] [place] [phone] PCP - General Family Medicine 11/07/19 documented as of this encounter
--- OUTSIDE RECORDS SUMMARY | 2024-07-05 08:48 | XMS_ITS | Encounter Summary ---
Author Organization [employer] Address [address] [place] [address] 7t [place] [address] Care Team Providers Care Chain Maker Loom Control Name Role Phone María Elena Zazueta MD Primary Care Provider [phone] Encounter Details Date Type Department Care Team (Late st Contact Info) Description 12/21/2022 Orders Only [facility] MED[facility]INE [address] [place] [address] [phone] María Elena Zazueta MD [address] [place] [address] [phone] Elevated AST (SGOT) (Primary Dx) Social History Tobacco Use Types Packs/Day Years Used Date Smoking Tobacco: Never Passive Smoke Exposure: Never Smokeless Tobacco: Never Depression Answer Date Recorded Patient Health Questionnaire-9 Score 0 07/05/2022 Depression Answer Date Recorded Patient Health Questionnaire-2 Score 0 07/05/2022 Comments Unknown Sex and Gender Information Value [...] Description 07/05/2024 9:00 AM EST Office Visit [facility] MED[facility]INE [address] [place] [address] [phone] María Elena Zazueta MD [address] [place] [address] [phone] Routine general medical examination at a health care facility (Primary Dx); Hypertension, unspecified type; Metabolic dysfunction-associate d steatotic liver disease (MASLD); Gastroesophageal reflux disease, unspecified whether esophagitis present; Kidney stone; Vitamin D deficiency; Obesity, Class II, BMI 35-39.9; Status post laparoscopic cholecystectomy; Dyslipidemia; Seasonal allergic rhinitis due to pollen; Alcohol consumption binge drinking Scheduled Orders Name Type Priority Associated Diagnoses Orde r Schedule Hepatitis B Surface Antigen with Reflex Confirmation Lab Routine Elevated AST (SGOT) Expected: 12/21/2022 (Approximate), Expires: 12/22/2023 Hepatitis C Antibody with Reflex to HCV, RNA, Quantitative, Real-Time PCR Lab Routine Elevated AST (SGOT) Expected: 12/21/2022 (Approximate), Expires: 12/22/2023 HIV-1/2 Antigen and Antibodies, Fourth Generation, with Reflexes Lab Routine Elevated AST (SGOT) Expected: 12/21/2022 (Approximate), Expires: 12/22/2023 documented as of this encounter Procedures Procedure Name Priority Date/Time Associated Diagnosis Comments TSH W/REFLEX TO FT4 Routine 12/22/2022 9 :04 AM EDT Elevated AST (SGOT) HEPATITIS A ANTIBODY, TOTAL Routine 12/22/2022 9:04 AM EDT Elevated AST (SGOT) HEPATITIS B CORE AB TOTAL Routine 12/22/2022 9:04 AM EDT Elevated AST (SGOT) HEPATITIS B SURFACE ANTIBODY, QUALITATIVE Routine 12/22/2022 9:04 AM EDT Elevated AST (SGOT) GGT Routine 12/22/2022 9:04 AM EDT Elevated AST (SGOT) HEPATIC FUNCTION PANEL Routine 12/22/2022 9:04 AM EDT Elevated AST (SGOT) documented in this encounter Results * Gamma Glutamyl Transferase (GGT) (12/22/2022 9:04 AM EDT) Gamma Glutamyl Transpeptidase 23 7 - 33 U/L [facility] Blood Venous blood specimen / Unknown 12/22/2022 9:04 AM EDT 12/22/2022 11:20 AM EDT us María Elena Zazueta MD LAB BLOOD ORDERABLES Final Resul t Performing Organization Address [facility] Co de Phone Number [facility] [address] [place] [phone] * TSH W/Reflex to FT4 (12/22/2022 9:04 AM EDT) TSH reflex Free T4 1.60 0.32 - 4.0 uIU/mL [facility] Blood 12/22/2022 9:04 AM EDT 12/22/2022 11:20 AM EDT us María Elena Zazueta MD LAB BLOOD ORDERABLES Final Resul t Performing Organization Address [facility] de Phone Number [facility] [address] [place] [phone] * (ABNORMAL) Hepatic Function Panel (12/22/2022 9:04 AM EDT) Bilirubin, Total 0.5 0.0 - 1.0 mg/dL [facility] Bilirubin, Direct 0.2 0.0 - 0.5 mg/dL [facility] Aspartate Amino Transferase 38(H) 5 - 31 U/L [facility] Alanine Aminotransferase 27 0 - 31 U/L [facility] Total Protein 7.9 6.5 - 8.0 g/dL [facility] Albumin Level 4.6 3.5 - 5.0 g/dL [facility] Alkaline Phosphatase 73 39 - 117 U/L [facility] Blood Venous blood specimen / Unknown 12/22/2022 9:04 AM EDT 12/22/2022 11:20 AM EDT us María Elena Zazueta MD LAB BLOOD ORDERABLES Final Resul t Performing Organization Address City/[facility] Co de Phone Number [facility] [address] [place] [phone] * Hepatitis B Surface Antibody, Qualitative (12/22/2022 9:04 AM EDT) ~Hepatitis B Surface Antibody REACTIVE Nonreactive [facility] Comment:REACTIVE: > 11.99 mI U/mL Blood Venous blood specimen / Unknown 12/22/2022 9:04 AM EDT 12/22/2022 11:20 AM EDT us María Elena Zazueta MD LAB BLOOD ORDERABLES Final Resul t Performing Organization Address [facility] Co de Phone Number [facility] [address] [place] [phone] * Hepatitis B Core Antibody, Total (12/22/2022 9:04 AM EDT) Pathologist [facility] Hepatitis B Core Antibody Nonreactive Nonreactive [facility] Blood Venous blood specimen / Unknown 12/22/2022 9:04 AM EDT 12/22/2022 11:20 AM EDT us María Elena Zazueta MD LAB BLOOD ORDERABLES Final Resul t Performing Organization Address [facility] de Phone Number [facility] [address] [place] [phone] * Hepatitis A Antibody IgG (12/22/2022 9:04 AM EDT) Pathologist [facility] Hepatitis A Antibody IgG REACTIVE Nonreactive [facility] Comment:The presence of IgG anti-HAV implies past HAV infection(recent or distant) or vaccination against HAV. Blood Venous blood specimen / Unknown 12/22/2022 9:04 AM EDT 12/22/2022 11:20 AM EDT us María Elena Zazueta MD LAB BLOOD ORDERABLES Final Resul t Performing Organization Address [facility] Co de Phone Number [facility] [address] [place] [phone] documented in this encounter Visit Diagnoses Diagnosis Elevated AST (SGOT)- Primary Routine general medical examination at a health [...] Noted Time PHQ-9 Depression Total Score: 0 07/05/19 23 1:08 PM EST documented as of this encounter Care Teams Chain Maker Loom Control Relationship Specialty Start Date End Date María Elena Zazueta MD [address] [place] [phone] PCP - General Family Medicine 11/07/19 documented as of this encounter
--- OUTSIDE RECORDS SUMMARY | 2024-07-05 08:48 | XMS_ITS | Encounter Summary ---
Author Organization [employer] Address [address] [place] [address] 7 [place] [address] Care Team Providers Care Production Drilling Machine Operator Name Role Phone María Elena Zazueta MD Primary Care Provider [phone] Reason for Referral * Consultation (Urgent) - Authorized Specialty Diagnoses / Procedures Referred By Allan monroe Referred To Contact Urology Diagnoses Urinary tract infection without hematuria, site unspecified Kidney stone on left side María Elena Zazueta MD [address] [place] [address] Phone: tel: [facility] [address] [place] [phone] Phone: tel: fax: Referral ID Status Reason Start Date Expiration Date Visits Requested Visits Authorized [id number] Authorized Specialty Services Required 02/01/2024 01/31/2025 1 1 Encounter Details Date Type Department Care Team (Late st Contact Info) Description 02/01/2024 Orders Only [facility] [address] [place], [place] [phone] María Elena Zazueta MD [address] [place], [place] [phone] Urinary tract infection without hematuria, site unspecified; Kidney stone; Kidney stone on left side Social History Tobacco Use Types Packs/Day Years [...] 9:00 AM EST Office Visit [facility] [address] [place] [address] María Elena Zazueta MD [address] [place], [place] [phone] Routine general medical examination at a health care facility (Primary Dx); Hypertension, unspecified type; Metabolic dysfunction-associate d steatotic liver disease (MASLD); Gastroesophageal reflux disease, unspecified whether esophagitis present; Kidney stone; Vitamin D deficiency; Obesity, Class II, BMI 35-39.9; Status post laparoscopic cholecystectomy; Dyslipidemia; Seasonal allergic rhinitis due to pollen; Alcohol consumption binge drinking documented as of this encounter Procedures Procedure Name Priority Date/Time Associated Diagnosis Comments URINALYSIS, COMPLETE Routine 02/17/2024 1:25 PM EDT Urinary tract infection without hematuria, site unspecified CULTURE, URINE, ROUTINE Routine 02/17/2024 1:25 PM EDT Urinary tract infection without hematuria, site unspecified Kidney stone on left side AMB REFERRAL TO UROLOGY Urgent 02/03/2024 Urinary tract infection without hematuria, site unspecified Kidney stone on left side documented in this encounter Results * Urinalysis Complete (02/17/2024 1:25 PM EDT) Color Urine Yellow [facility] Appearance Urine Clear [facility] PH 6.5 5.0 - 9.0 [facility] Glucose Urine UA Negative Negative mg/dL [facility] Urine Blood Negative Negative [facility] Specific [place] - Urine <=1.005 1.005 - 1.025 [facility] Urine Protein Negative Neg-Trace mg/dL [facility] Urine Ketones Negative Negative mg/dL [facility] Nitrite Urine Negative Negative [facility] Leukocyte Esterase Urine Negative Negative [facility] RBC Urine 0-2 0 - 2 /HPF [facility] Urine WBC 0-5 0 - 5 /HPF [facility] Urine Squamous Epithelial Cell 3-5 0 - 2 /HPF [facility] Urine Bacteria None Seen None Seen [facility] Hyaline Casts, Urine 0-2 0 - 2 /LPF [facility] Urine (Urine, Random) 02/17/2024 1:25 PM EDT 02/17/2024 4:16 PM EDT us María Elena Zazueta MD LAB URINE ORDERABLES Final Resul t Performing Organization Address City/[facility]/ZIP Co de Phone Number [facility] [address] [place] [phone] * Culture, Urine, Routine (02/17/2024 1:25 PM EDT) Urine Urine specimen obtained by clean catch procedure / Unknown 02/17/2024 1:25 PM EDT 02/17/2024 4:16 PM EDT Comment:[facility]ACC Narrative [facility] - 02/19/2024 11:45 AM EDT Urine Culture No growth. Specimen Source: Urine clean catch María Elena Zazueta MD LAB MICROBIOLOGY - GENERAL ORDER CHANDANA Final Result Performing Organization Address City/[facility] Co de Phone Number [facility] [address] [place] [phone] [phone] * Referral to Urology (02/03/2024) María Elena Zazueta MD OUTPATIENT REFERRAL ORDERABLES F inal Result documented in this encounter Visit Diagnoses Diagnosis Urinary tract infection without hematuria, site unspecified Kidney stone Calculus of kidney Kidney stone on left side Routine general medical examination at a health [...] documented as of this encounter Care Teams Production Drilling Machine Operator Relationship Specialty Start Date End Date María Elena Zazueta MD [address] [place] [phone] PCP - General Family Medicine 11/07/19 documented as of this encounter
--- OUTSIDE RECORDS SUMMARY | 2024-07-05 08:48 | XMS_ITS | Encounter Summary ---
Author Organization [employer] Address 75 [facility] 7t [place] [address] Care Team Providers Care Bag Checker Name Role Phone María Elena Zazueta MD Primary Care Provider [phone] Reason for Visit * Reason Onset Date Comments Chart Prep 07/02/2024 Encounter Details Date Type Department Care Team ([facility] st Contact Info) Description 07/02/2024 Telephone [facility] [address] [place], [place] [phone] María Elena Zazueta MD [address] [place], [place] [phone] Chart Prep Social History Tobacco Use Types Packs/Day Years [...] the past 12 months, has t he [employer], gas, oil or water [employer] threatened to shut off services in your [...] AM EDT documented as of this encounter Miscellaneous Notes * Telephone Encounter - Alicia Hanna [place] - 07/02/2024 1:02 PM EST Chart Prep Labs: not done Images: not applicable Vaccines due: Hep A Due Referrals: Optometry No showed on 06/19/2024 Screenings: Not Applicable Overdue care gaps: None documented in this encounter Plan of Treatment Upcoming Encounters Date Type Department Care Team (Late st Contact Info) Description 07/05/2024 9:00 AM EST Office Visit [facility] MED[facility]INE [address] [place] [phone] María Elena Zazueta MD [address] [place] [address] Routine general medical examination at a health [...] documented as of this encounter Care Teams Bag Checker Relationship Specialty Start Date End Date María Elena Zazueta MD [address] [place] [phone] PCP - General Family Medicine 11/07/19 documented as of this encounter
--- OUTSIDE RECORDS SUMMARY | 2024-07-05 08:48 | XMS_ITS | Encounter Summary ---
Author Organization [employer] Address [address] [place] [address] [address] [place] [address] Care Team Providers Care Stage Manager Name Role Phone María Elena Zazueta MD Primary Care Provider [phone] Reason for Referral * Imaging (Routine) - Closed Specialty Diagnoses / Procedures Referred By Allan monroe Referred To Contact Radiology Diagnoses History of kidney stones Acute cystitis without hematuria Procedures US RENAL BI María Elena Zazueta MD [address] [place] [address] Phone: tel: fax: [address] Phone: tel: fax: Referral ID Status Reason Start Date Expiration Date Visits Re quested Visits Authorized [id number] Closed 01/04/2024 01/03/2025 1 1 Encounter Details Date Type Department Care Team (Late st Contact Info) Description 01/04/2024 Orders Only [facility] [address] [place] [address] [phone] María Elena Zazueta MD [address] [place] [address] History of kidney stones (Primary Dx); Acute cystitis without hematuria Social History Tobacco Use Types Packs/Day Years [...] Description 07/05/2024 9:00 AM EST Office Visit [facility] [address] [place] [address] María Elena Zazueta MD [address] [place] [address] Routine general medical examination at a health [...] Procedure Name Priority Date/Time Associated Diagnosis Comments US RENAL BI Routine 01/26/2024 8:01 AM EDT History of kidney stones Acute cystitis without hematuria documented in this encounter Results * US RENAL BI (01/26/2024 8:01 AM EDT) Anatomical Region Laterality Modality Abdomen Ultrasound 01/26/2024 8:01 AM EDT Narrative 02/01/2024 12:48 AM EDT ? [facility] ?[address] ?[place] [address] ? Ultrasound Report ? Signed ? Patient: Senthil Hyatt ?MR#: ?? [id number] ? : 1985 ?Acct:[id number] ? Age/Sex: 38 / F ?ADM Date: 01/26/24 ? Loc: HO.US ? Attending Dr: María Elena Zazueta MD ? Ordering Physician: María Elena Zazueta MD ?? Date of Service: 01/26/24 ?? Procedure(s): US renal BI ?? Accession Number(s): [id number] ? cc: María Elena Zazueta MD ? EXAMINATION: ?? US RETROPERITONEAL LIMITED (RENAL ONLY) ? CLINICAL INFORMATION: ?? UTI, proteus mirabilis. Nonobstructive kidney stone seen in last ?? ultrasound. ? COMPARISON: ?? Ultrasound abdomen 09/16/2023 and 06/23/2022. ? TECHNIQUE: ?? Real-time imaging of the kidneys. ? FINDINGS: ? RIGHT KIDNEY: 11.0 x 5.4 x 5.8 cm (SAG x AP x TRV). The kidney is ?? normal in size, contour, and echogenicity. Renal cortical thickness is ?? normal. No renal calculi or hydronephrosis. A benign upper pole 1.2 cm ?? Bosniak class I renal cyst is noted which requires no additional ?? imaging or follow up. No solid renal masses are seen. ? LEFT KIDNEY: 12.0 x 5.8 x 5.2 cm (SAG x AP x TRV). The kidney is normal ?? in size, contour, and echogenicity. Renal cortical thickness is normal. ?? No focal parenchymal lesions. There is a 3 mm upper pole and 3 mm lower ?? pole echogenic foci seen consistent with nonobstructing stones. There ?? is mild left-sided pelvocaliectasis, new compared to prior. ? US/US renal BI ?? IMPRESSION: ?? 1. Nonobstructing left-sided renal calculi. ? 2. Mild left-sided pelvocaliectasis. ? Electronically signed by: ??Kvng Sanchez MD ??02/01/2024 12:45 AM EDT ? Dictated By: ?Kvng Sanchez MD ? Signed By: ?<Electronically signed by Kvng Sanchez MD in OV> ? 02/01/24 0045 ? DD/ 0801 ? TD/TT: 01/26/24 0811 ? Assisted Living Executive Director: SS ? Procedure Note Donrobertter, Image - 02/01/2024 [place] [address] Ultrasound Report Signed Patient: Senthil Hyatt SMR#: [id number] : 1985Acct:[id number] Age/Sex: 38 / FADM Date: 01/26/24 Loc: HO.US Attending Dr: María Elena Zazueta MD Ordering Physician: María Elena Zazueta MD Date of Service: 01/26/24 Procedure(s): US renal BI Accession Number(s): [id number] cc: María Elena Zazueta MD EXAMINATION: US RETROPERITONEAL LIMITED (RENAL ONLY) CLINICAL INFORMATION: UTI, proteus mirabilis. Nonobstructive kidney stone seen in last ultrasound. COMPARISON: Ultrasound abdomen 09/16/2023 and 06/23/2022. TECHNIQUE: Real-time imaging of the kidneys. FINDINGS: RIGHT KIDNEY: 11.0 x 5.4 x 5.8 cm (SAG x AP x TRV). The kidney is normal in size, contour, and echogenicity. Renal cortical thickness is normal. No renal calculi or hydronephrosis. A benign upper pole 1.2 cm Bosniak class I renal cyst is noted which requires no additional imaging or follow up. No solid renal masses are seen. LEFT KIDNEY: 12.0 x 5.8 x 5.2 cm (SAG x AP x TRV). The kidney is normal in size, contour, and echogenicity. Renal cortical thickness is normal. No focal parenchymal lesions. There is a 3 mm upper pole and 3 mm lower pole echogenic foci seen consistent with nonobstructing stones. There is mild left-sided pelvocaliectasis, new compared to prior. US/US renal BI IMPRESSION: 1. Nonobstructing left-sided renal calculi. 2. Mild left-sided pelvocaliectasis. Electronically signed by: Kvng Sanchez MD 02/01/2024 12:45 AM EDT RP Dictated By: Kvng Sanchez MD Signed By: <Electronically signed by Kvng Sanchez MD in OV> 02/01/24 0045 DD/ 0801 TD/TT: 01/26/24 0811 Assisted Living Executive Director: SS us María Elena Zazueta MD IMG US PROCEDURES Final Result documented in this encounter Visit Diagnoses Diagnosis History of kidney stones- Primary Acute cystitis without hematuria Routine general medical examination at a health [...] documented as of this encounter Care Teams Stage Manager Relationship Specialty Start Date End Date María Elena Zazueta MD [address] [place] [id number] PCP - General Family Medicine 11/07/19 documented as of this encounter
--- OUTSIDE RECORDS SUMMARY | 2024-07-05 08:48 | XMS_ITS | Clinical Summary ---
Author Organization [employer] Address [address] [facility] [address] [place] [address] Care Team Providers Care Rejoiner Name Role Phone María Elena Zazueta MD Primary Care Provider [phone] Allergies No known active allergies Medications omeprazole (PriLOSEC) [address] capsule TAKE 1 CAPSULE BY MOUTH ONCE DAILY BEFORE MEALS 2 Active montelukast (Singulair) 10 MG tablet Take 1 tablet (10 mg) by mouth in the morning. 30 tablet 11 3 Active ibuprofen 600 MG tablet Take 1 tablet by mouth every 8 hours as needed for pain / fever 30 tablet 1 3 Active Blood Pressure Monitor kit Check blood pressure once daily and as needed 1 kit 3 Active Multiple Vitamin (multivitamin) tabletIndicatio ns:Vitamin deficiency Take 1 tablet once a day 90 tablet 3 4 Active cetirizine (ZyrTEC) 10 MG tablet Take 1 tablet (10 mg) by mouth Once per day. 90 tablet 3 4 Active fluticasone (Flonase) 50 MCG/ACT nasal spray Administer 1-2 sprays into each nostril Once per day. Shake gently. Before first use, prime pump. After use, clean tip and replace cap. 16 g 2 4 09/15/19 25 Active losartan (Cozaar) 25 MG tablet Take 1 tablet (25 mg) by mouth Once per day. 90 tablet 3 4 03/01/20 25 Active Active Problems Problem Noted Date Diagnosed Date Kidney stone 12/04/2023 Assessment & Plan (03/01/2024 8:56 AM EDT): - incidental finding on recent liver US / elastography in September 2022, non- obstructive - UTI in Dec 2023, proteus mirabilis resistant to nitrofurantoin - Renal US on 02/01/24 showed a 3 mm left upper pole and 3 mm lower pole non-obstructing stones. Mild left=sided pelvocaliectasis. Referred to urology. - adequate hydration Assessment & Plan (12/04/2023 5:35 PM EDT): - incidental finding on recent liver US / elastography in September 2022 - non-obstructive - adequate hydration Metabolic dysfunction-associ ated steatotic liver disease (MASLD) 08/24/2023 Assessment & Plan (03/02/2024 5:20 AM EDT): - Last hepatic panel: 12/30/23, improved - Most recent Liver US and elastography: 09/16/23 1. Enlarged echogenic liver. 2. Incidentally noted nonobstructing left renal calculus. Shear wave liver elastography median stiffness is 1.4 m/s - FIB-4 = 0.62 - Alcohol intake: cutting down - Continue working on lifestyle modifications - will update US in the future Assessment & Plan (12/04/2023 5:29 PM EDT): - Last hepatic panel: 04/13/23 - Most recent Liver US and elastography: 09/16/23 1. Enlarged echogenic liver. 2. Incidentally noted nonobstructing left renal calculus. Shear wave liver elastography median stiffness is 1.4 m/s - FIB-4 = 0.62 - Alcohol intake: cutting down - Continue working on lifestyle modifications - will update US Assessment & Plan (08/24/2023 9:21 AM EDT): - Last hepatic panel: 04/13/23 - Last US: 06/23/22 hepatic steatosis; gallbladder polyp 8 mm; benign-appearing hepatic cyst - FIB-4 = 0.62 - Alcohol intake: cutting down - Continue working on lifestyle modifications - will update US Dyslipidemia 04/04/2023 Assessment & Plan (03/02/2024 5:21 AM EDT): - last lipid profile: 04/13/23 - continue working on lifestyle modifications - recheck prior to next visit Assessment & Plan (12/04/2023 5:33 PM EDT): - last lipid profile: 04/13/23 TC 217; TG 112; HDL 67; LDL 128 - continue working on lifestyle modifications Assessment & Plan (06/05/2023 4:05 PM EST): - last lipid profile: 12/22/22 TC 184; TG 226; HDL 59; LDL 80 - continue working on lifestyle modifications Assessment & Plan (04/17/2023 7:55 AM EST): - last lipid profile: 12/22/22 TC 184; TG 226; HDL 59; LDL 80 - continue working on lifestyle modifications Alcohol consumption binge drinking 04/04/2023 Assessment & Plan (03/02/2024 5:22 AM EDT): - discussed about reducing the amount of alcohol intake - discussed about the effect of alcohol on our health Assessment & Plan (06/05/2023 4:04 PM EST): - discussed about reducing the amount of alcohol intake - discussed about the effect of alcohol on our health Assessment & Plan (04/17/2023 7:56 AM EST): - discussed about reducing the amount of alcohol intake - discussed about the effect of alcohol on our health Obesity, Class II, BMI 35-39.9 12/24/2022 Assessment & Plan (08/24/2023 9:22 AM EDT): - elevated BP - continue working on lifestyle modifications Assessment & Plan (12/24/2022 11:20 AM EDT): - elevated BP - continue working on lifestyle modifications Hypertension 07/07/2022 Assessment & Plan (03/01/2024 9:25 AM EDT): -Goal BP < 140/90 per JNC-8 and < 130/80 per ACC/AHA guideline (Treatment threshold >= 140/90 -BP elevated today -Family Hx: HTN -Continue working on lifestyle modifications -Continue losartan 25 mg daily, improve adherence -Monitor home BP. -Follow up in 3 mo, sooner if any problem arises Assessment & Plan (12/04/2023 5:26 PM EDT): -Goal BP < 140/90 per JNC-8 and < 130/80 per ACC/AHA guideline (Treatment threshold >= 140/90 -Family Hx: HTN -Continue working on lifestyle modifications -Continue losartan 25 mg daily, improve adherence -Monitor home BP. -Follow up in 3 mo, sooner if any problem arises Assessment & Plan (08/24/2023 9:21 AM EDT): -Goal BP < 140/90 per JNC-8 and < 130/80 per ACC/AHA guideline (Treatment threshold >= 140/90 -Family Hx: HTN -Continue working on lifestyle modifications -Continue losartan 25 mg daily, improve adherence -Monitor home BP. -Follow up in 3 mo, sooner if any problem arises Assessment & Plan (06/05/2023 4:03 PM EST): -Goal BP < 140/90 per JNC-8 and < 130/80 per ACC/AHA guideline (Treatment threshold >= 140/90 -Family Hx: HTN -Continue working on lifestyle modifications -Start losartan 25 mg daily -Monitor home BP. -Follow up in 3 mo, sooner if any problem arises Assessment & Plan (04/17/2023 7:53 AM EST): -Goal BP < 140/90 per JNC-8 and < 130/80 per ACC/AHA guideline (Treatment threshold >= 10/90 -Family Hx: HTN -Continue working on lifestyle modifications -Monitor home BP. -Follow up in 3 mo, sooner if any problem arises Assessment & Plan (12/24/2022 11:18 AM EDT): -Goal BP < 140/90 per JNC-8 and < 130/80 per ACC/AHA guideline (Treatment threshold >= 10/90 -Family Hx: HTN -Continue working on lifestyle modifications -Monitor home BP. -Follow up in 3 mo, sooner if any problem arises Assessment & Plan (07/07/2022 5:53 AM EST): -Goal BP < 140/90 per JNC-8 and < 130/80 per ACC/AHA guideline (Treatment threshold >= 10/90 -Likely transient because her BP was better after the surgery -Continue working on lifestyle modifications -Follow up in 3-6 mo, sooner if any problem arises Status post laparoscopic cholecystectomy 023 Assessment & Plan (06/05/2023 4:05 PM EST): s/p Cholecystectomy by Dr. Pompa on 06/24/22 Assessment & Plan (07/05/2022 1:14 PM EST): s/p Cholecystectomy by Dr. Pompa on 06/24/22 GERD (gastroesophageal reflux disease) Assessment & Plan (06/05/2023 4:03 PM EST): - Negative H. Pylori in 02/2022 - Continue omeprazole 20 mg daily prn - Dietary modification - Minimize NSAIDs use Assessment & Plan (07/07/2022 5:55 AM EST): - Negative H. Pylori in 02/2022 - Continue omeprazole 20 mg daily prn - Dietary modification - Minimize NSAIDs use Vitamin D deficiency 03/17/2018 Assessment & Plan (06/05/2023 4:04 PM EST): Labs on 11/08/2019: Vitamin D 27 -Continue supplementation Assessment & Plan (07/05/2022 1:03 PM EST): Labs on 11/08/2019: Vitamin D 27 -Continue supplementation Allergic rhinitis 05/18/2012 Assessment & Plan (03/02/2024 5:22 AM EDT): - continue cetrizine and flonase Assessment & Plan (08/24/2023 9:23 AM EDT): - will prescribe cetrizine and flonase Resolved Problems Problem Noted Date Diagnosed Date Resolved Date Gallbladder polyp 08/24/2023 03/01/2024 Assessment & Plan (12/04/2023 5:27 PM EDT): - Seen on US in 2022 - Most recent US on 09/16/23 showed no polyp Assessment & Plan (08/24/2023 9:22 AM EDT): - evaluate with US Elevated AST (SGOT) 04/04/2023 08/24/19 Assessment & Plan (06/05/2023 4:05 PM EST): 12/22/22 AST 57; ALT 29, Alk Phos 29. Discussed about healthy diet and exercise Reduce alcohol intake Assessment & Plan (04/17/2023 7:56 AM EST): 12/22/22 AST 57; ALT 29, Alk Phos 29. Discussed about healthy diet and exercise Reduce alcohol intake Epigastric pain 07/05/2022 12/20/2022 Assessment & Plan (07/05/2022 1:12 PM EST): s/p Cholecystectomy by Dr. Pompa on 06/24/22 -H pylori negative on 01/18/22 -will check liver fxn test -will consider US -trial omeprazole 20 mg daily -work on weight reduction -avoid NSAIDS Overweight 01/03/2015 06/05/2023 Encounters Date Type Department Care Team Description 07/05/2024 9:00 AM EST Office Visit [facility] [address] [place] [phone] María Elena Zazueta MD Routine general medical examination at a health care facility (Primary Dx); Hypertension, unspecified type; Metabolic dysfunction-associate d steatotic liver disease (MASLD); Gastroesophageal reflux disease, unspecified whether esophagitis present; Kidney stone; Vitamin D deficiency; Obesity, Class II, BMI 35-39.9; Status post laparoscopic cholecystectomy; Dyslipidemia; Seasonal allergic rhinitis due to pollen; Alcohol consumption binge drinking 07/05/2024 Travel 07/02/2024 Telephone [facility] [address] [place] [phone] María Elena Zazueta MD Chart Prep 06/27/2024 Patient Outreach [facility] [address] [place] [address] María Elena Zazueta MD Pre-visit Planning (SDOH was completed on 05/25/2024) 06/07/[address] [address] María Elena Zazueta MD 06/06/2024 Orders Only [facility] [address] [place] [phone] María Elena Zazueta MD Hypertension, unspecified type (Primary Dx); Dyslipidemia; Kidney stone; Vitamin D deficiency 05/25/2024 Patient Outreach [facility] [address] [place] [phone] María Elena Zazueta MD Pre-visit Planning (SDOH Screening negative and Tobacco screening negative) 05/01/[address] [address] María Elena Zazueta MD from Last 3 Months Immunizations Name Administration Dates Next Due Hep A, Adult 05/30/2023 Influenza injectable quadrivalent preservative f ree 05/30/2023 Influenza, Split (incl. purified surface antigen ) 05/18/2012 Influenza, seasonal, injectable, preservative fr ee 03/01/2024 MMR 05/30/2023 Pfizer Covid-19 Vaccine 12+ 03/01/2024, Tdap 03/01/2024,02/02/2014 Family History Medical History Relation Name Comments Hypertension Father Cholecystitis Mother Alzheimer's disease Neg Hx Cancer Neg Hx Osteoporosis Neg Hx Relation Name Status Comments Father Mother Social History Tobacco Use Types Packs/Day Years Used Date Smoking Tobacco: Never Passive Smoke Exposure: Never Smokeless Tobacco: Never Tobacco Cessation:Counseling Given: Not Answered Alcohol Use Standard Drinks/Week Comments Yes 12 [...] Orientation Straight 03/08/2022 10 :19 AM EDT Last Filed Vital Signs Vital Sign Reading [...] 12.8 oz) 07/05/2024 8:38 AM EST Height 152.4 cm (5') 03/01/2024 9:12 AM EDT Body Mass Index 36.29 03/01/2024 9:12 AM EDT Plan of Treatment Upcoming Encounters Date Type Department Care Team (Late st Contact Info) Description 07/05/2024 9:00 AM EST Office Visit [facility] [address] [place], [place] [phone] María Elena Zazueta MD [address] [place] [address] Routine general medical examination at a health care facility (Primary Dx); Hypertension, unspecified type; Metabolic dysfunction-associate d steatotic liver disease (MASLD); Gastroesophageal reflux disease, unspecified whether esophagitis present; Kidney stone; Vitamin D deficiency; Obesity, Class II, BMI 35-39.9; Status post laparoscopic cholecystectomy; Dyslipidemia; Seasonal allergic rhinitis due to pollen; Alcohol consumption binge drinking Health Maintenance Due Date Last Done Comments Family Planning (PISQ) 12/04/1999 Alcohol/Substance Use Screening 03/01/2025 03/01/2024 Depression Screening 03/01/2025 03/01/2024, 08/24/19 Tobacco Screening 03/01/2025 03/01/2024 SDOH Screening 05/25/2025 05/25/2024 Cervical Cancer Screening 07/05/2027 HPV/Cotest 07/05/2027 07/05/2022, 04/07/2016 Pap Smear 07/05/2027 07/05/2022 Lipid Panel 04/13/2028 04/13/2023, 12/20/2022 DTaP/Tdap/Td Vaccines (3 - Td or Tdap) 03/01/2034 03/01/2024, 02/02/2014 Zoster Vaccines (1 of 2) 2034 RSV Patients and Patients Aged 60 years or older (1 - 1-dose 75+ series) 12/04/2059 HIV Screening Completed 12/22/2022, 02/11/2022 Hepatitis C Screening Completed 12/22/2022 , 02/11/2022, 11/08/2019 Hepatitis A Vaccines Discontinued 05/30/2023 COVID-19 Vaccine Completed 03/01/2024, , 10/15/2020, Additional history exists Influenza Vaccine Completed 03/01/2024, , 05/18/2012 HIB Vaccines Aged Out No longer eligi ble based on patient's age to complete this topic HPV Vaccines Aged Out No longer eligi ble based on patient's age to complete this topic Hepatitis B Vaccines Discontinued IPV Vaccines Aged Out No longer eligi ble based on patient's age to complete this topic Meningococcal Vaccine Aged Out No taz gary eligible based on patient's age to complete this topic Pneumococcal Vaccine: Pediatrics (0 to 5 Years) and At-Risk Patients (6 to 49) Years) Aged Out No longer eligible based on patient's age to complete this topic RSV under 20 months Aged Out No longe r eligible based on patient's age to complete this topic Rotavirus Vaccines Aged Out No longer eligible based on patient's age to complete this topic Procedures Procedure Name Priority Date/Time Associated Diagnosis Comments LIPID PANEL WITH REFLEX TO DIRECT LDL Routine 04/13/2023 8:35 AM EST Hypertriglyceridemi a HEPATITIS C ANTIBODY REFLEX Routine 12/22/2022 9:04 AM EDT HIV ANTIBODY/ANTIGEN ([facility]) Routine 12/22/2022 9:04 AM EDT THINPREP IMAGING PAP AND HPV DNA REFLEX HPV 16,18 Routine 07/05/2022 1:47 PM EST from Last 3 Months or Most Recently Relevant to Health Maintenance Results * (ABNORMAL) Lipid Panel with Reflex to Direct LDL (04/13/2023 8:35 AM EST) Triglycerides 112 <150 mg/dL [facility] Comment:Desirable Triglyceri de: less than 150 mg/dLBorderline High Triglyceride 150-199 mg/dLHigh Triglyceride: 200-499 mg/dLVery High Triglyceride: greater than or equal to 5OO mg/dL Cholesterol 217(H) <200 mg/dL [facility] Comment:Desirable Cholestero l: less than 200 mg/dLBorderline High Cholesterol: 200-239 mg/dLHigh Cholesterol: greater than 239 mg/dL LDL Cholesterol Calculated 128(H) <100 mg/dL [facility] Comment:Desirable LDL: less than 100 mg/dLNear Optimal/Above Optimal LDL: 110- 129 mg/dLBorderline High LDL: 130-159 mg/dLHigh LDL: 160-189 mg/dLVery High LDL: greater than or equal to 190 mg/dL HDL Cholesterol 67 >40 mg/dL [facility] Comment:Desirable HDL: great er than 40 mg/dL Note: This HDL assay may give artificially low results in patients with liver disease. Blood 04/13/2023 8:35 AM EST 04/13/2023 11:03 AM EST María Elena Zazueta MD LAB BLOOD ORDERABLES Final Resul t Performing Organization Address [facility] de Phone Number [facility] [address] [place] [phone] * Hepatitis C Antibody Reflex (12/22/2022 9:04 AM EDT) Hepatitis C Antibody Nonreactive Nonreactive [facility] Comment:Antibodies to HCV no t detected; does not exclude early acuteHCV infection. 12/22/2022 9:04 AM EDT 12/22/2022 11:20 AM EDT María Elena Zazueta MD LAB BLOOD ORDERABLES Final Resul t Performing Organization Address [facility] Co de Phone Number [facility] [address] [place] [phone] * HIV Ab/Ag (PRATIBHA GUILLERMO) (12/22/2022 9:04 AM EDT) HIV AB/AG Nonreactive Nonreactive [facility] Comment:HIV-1 p24 Ag and/or HIV-1/HIV-2 Ab not detected.A test result that is nonreactive does not exclude thepossibility of exposure to or infection with HIV-1 and/orHIV-2. Nonreactive results in this assay for individualswith prior exposure to HIV-1 and/or HIV-2 may be due toantigen and antibody levels that are below the limit ofdetection of this assay.The [employer] HIV Ag/Ab Combo assay result andsupplemental assay results should be interpreted inconjunction with the patient's clinical presentation,history and other laboratory results. If the results areinconsistent with clinical evidence, additional testing issuggested to confirm the result. 12/22/2022 9:04 AM EDT 12/22/2022 11:20 AM EDT us María Elena Zazueta MD LAB BLOOD ORDERABLES Final Resul t [facility] [address] [place] [phone] * [facility] Pap and HPV DNA reflex HPV 16,18 (07/05/2022 1:47 PM EST) Clinical Information: None given [facility] LMP: NONE GIVEN [facility] Prev. PAP: NONE GIVEN [facility] Prev. BX: NONE GIVEN [facility] SOURCE: None given [facility] Statement Of Adequacy: [facility] Comment: Satisfactory for evaluation. Endocervical/transformation zone component absent. Interpretation/ Result: Negative for intraepithelial lesion or malignancy. [facility] COMMENT: This Pap test has been evaluated with computer assisted technology. [facility] Cytotechnologis t: [facility] Comment: MSM, CT(ASCP) CT screening location: [address] ??[phone] (Always Message) [facility] Comment: EXPLANATORY NOTE: The Pap is a screening test for cervical cancer. It is not a diagnostic test and is subject to false negative and false positive results. It is most reliable when a satisfactory sample, regularly obtained, is submitted with relevant clinical findings and history, and when the Pap result is evaluated along with historic and current clinical information. HPV DNA, High Risk, Cervical Not Detected NOT DETECTED [facility] Comment: Not Detected High Risk HPV types (16,18,31,33,35,39,45,51,52, 56,58,59,66,68) were not detected. Other HPV types which cause anogenital lesions may be present. The significance of the other types of HPV in malignant processes has not been established. Methodology: Real Time PCR ? 07/05/2022 1:47 PM EST 07/06/2022 8:38 AM EST Narrative [facility] - 07/11/2022 12:49 PM EST FASTING: UNKNOWN us María Elena Zazueta MD LAB CYTOLOGY ORDERABLES Final Re sult [facility] [address] [place] [address] [facility] [address] [facility], ([address]) [place] [address] [facility] [address] [place] [address] from Last 3 Months or Most Recently Relevant to Health Maintenance Insurance [address] [place] [phone] [employer] FULL Care Teams Rejoiner Relationship Specialty Start Date End Date María Elena Zazueta MD [address] [place] [phone] PCP - General Family Medicine 11/07/19
--- OUTSIDE RECORDS SUMMARY | 2024-07-05 08:48 | XMS_ITS | Encounter Summary ---
Author Organization [employer] Address [address] [facility] [address] [place] [address] Care Team Providers Care Summer Babysitter Name Role Phone María Elena Zazueta MD Primary Care Provider [phone] Encounter Details Date Type Department Care Team ([facility] st Contact Info) Description 06/07/2024 Telephone [facility] [address] [place], [place] [phone] María Elena Zazueta MD [address] [place], [place] [phone] Social History Tobacco Use Types Packs/Day Years [...] encounter Miscellaneous Notes * Telephone Encounter - Rosanne Villa - 06/07/2024 9:20 AM EST Pt no showed to physical appt on 06/07/2024 documented in this encounter Plan of Treatment Upcoming Encounters Date Type Department Care Team (Late st Contact Info) Description 07/05/2024 9:00 AM EST Office Visit [facility] [address] [place] [address] María Elena Zazueta MD [address] [place] [address] Routine general medical examination at a health [...] documented as of this encounter Care Teams Summer Babysitter Relationship Specialty Start Date End Date María Elena Zazueta MD [address] [place] [address] PCP - General Family Medicine 11/07/19 documented as of this encounter
[2024-07-05 11:54] LABS: MANUAL DIFF FLAG NO
[2024-07-05 11:59] LABS: Basophils Absolute Auto 0.1 X10*3/uL (0.0-0.2); Basophils Percent Auto 0.7 % (0-2); Eosinophils Absolute Auto 0.2 X10*3/uL (0.0-0.4); Eosinophils Percent Auto 3.3 % (0-4); Hematocrit 36.2 % (37.0-47.0); Hemoglobin 12.2 g/dl (12.0-16.0); Imm Gran Abs Auto 0.06 X10*3/uL (0.00-0.03); Imm Gran Pct Auto 0.8 % (0.0-0.4); Lymphocytes Absolute Auto 1.8 X10*3/uL (1.2-4.9); Mean Corpuscular HGB Conc 33.7 g/dl (31.0-35.0); Mean Corpuscular Hemoglobin 30.9 pg (27.0-33.0); Mean Corpuscular Volume 91.6 fL (80.0-98.0); Mean Platelet Volume 9.8 fL (9.4-12.3); Monocytes Absolute Auto 0.5 X10*3/uL (0.1-1.2); Neutrophils Absolute Auto 4.6 x10*3/uL (2.0-8.3); Neutrophils Percent Auto 63.2 % (45-73); Platelet Count 352 X10*3/uL (160-400); Red Blood Count 3.95 X10*6/uL (4.20-5.50); Red Cell Distribution Width 13.2 % (11.0-16.0); White Blood Count 7.3 X10*3/uL (4.8-10.8)
[2024-07-05 12:18] LABS: Alanine Aminotransferase 19 U/L (0-31); Albumin Level 4.1 g/dL (3.5-5.0); Alkaline Phosphatase 75 U/L (39-117); Anion Gap 9 (12-20); Aspartate Amino Transferase 25 U/L (5-31); Bilirubin Direct 0.2 mg/dL (0.0-0.5); Bilirubin Total 0.6 mg/dL (0.0-1.0); Blood Urea Nitrogen 14 mg/dL (9-16); Calcium 8.8 mg/dL (8.4-10.2); Carbon Dioxide 25 mmol/L (22-29); Chloride 109 mmol/L (96-108); Cholesterol 202 mg/dL (<200); Estimated Glomerular Filt Rate > 60; Glucose Random 96 mg/dL (60-115); HDL Cholesterol 71 mg/dL (>40); LDL Cholesterol Calculated 116 mg/dL (<100); Potassium 4.2 mmol/L (3.3-5.1); Sodium 139 mmol/L (135-145); Total Protein 7.4 g/dL (6.5-8.0); Triglycerides 78 mg/dL (<150)
[2024-07-05 12:36] LABS: Vitamin D 25-OH Total 18.8 ng/mL (>30)
[2024-07-05 12:49] LABS: Reflex LDLD? No
== END 2024-07-05 08:24 | disposition home or self-care (01) ==
LOC: HO.HHCL 08:23
PROVIDERS: Visit Provider Family Medicine
DX: I10 Essential (primary) hypertension (principal); K76.0 Fatty (change of) liver, not elsewhere classified; E55.9 Vitamin D deficiency, unspecified; E78.5 Hyperlipidemia, unspecified
CPT/HCPCS: 36415; 80048; 80061; 80076; 82306; 85025

== ENCOUNTER 2024-10-24 08:03 | Outpatient (REF) | payer MEDICAID, OTHER, SELFPAY ==
--- OUTSIDE RECORDS SUMMARY | 2024-10-24 08:15 | XMS_ITS | Encounter Summary ---
Author Organization [employer] Address [address] [facility] 7t [place] [address] Care Team Providers Care Change Number Operator Name Role Phone María Elena Zazueta MD Primary Care Provider [phone] Encounter Details Date Type Department Care Team (Late st Contact Info) Description 07/06/2024 Orders Only [facility] [address] [place], [place] [phone] María Elena Zazueta MD [address] [place], [place] [phone] Social History Tobacco Use Types Packs/Day Years [...] Care Team (Late st Contact Info) Description 10/24/2024 9:00 AM EDT Office Visit [facility] [address] [place] [address] María Elena Zazueta MD [address] [place] [address] documented as of this encounter Visit Diagnoses Not on filedocumented in this encounter Additional Health Concerns Assessment Noted Time PHQ-9 Depression Total Score: 0 08/24/19 24 9:00 AM EDT documented as of this encounter Care Teams Change Number Operator Relationship Specialty Start Date End Date María Elena Zazueta MD [address] [place] [phone] PCP - General Family Medicine 11/07/19 documented as of this encounter
[2024-10-24 12:24] LABS: TSH reflex Free T4 1.12 uIU/mL (0.32-4.0); Vitamin D 25-OH Total 18.5 ng/mL (>30)
[2024-10-24 13:17] LABS: CT PCR NOT DETECTED (Not Detect.); NG PCR NOT DETECTED (Not Detect.)
== END 2024-10-24 08:04 | disposition home or self-care (01) ==
LOC: HO.HHCL 08:03
PROVIDERS: PCP Family Medicine; Visit Provider Family Medicine
DX: R30.0 Dysuria (principal); E55.9 Vitamin D deficiency, unspecified; M54.9 Dorsalgia, unspecified; E66.812 Obesity, class 2; I10 Essential (primary) hypertension
CPT/HCPCS: 82306; 84443; 87491; 87591